=== PATIENT | female | born 1985 | race Hispanic/Latino ===

== ENCOUNTER → 2023-12-18 | Emergency (ER) | payer OTHER ==
[~2023-12-18] MED LIST: DICYCLOMINE HCL 10 MG CAP ONE; FAMOTIDINE 20 MG/2 ML VIAL IV ONE; KETOROLAC 30 MG/ML INJ ONE; NA CHLORIDE 0.9% 1,000 ML ONE; ONDANSETRON 4 MG/2 ML VIAL ONE
--- OUTSIDE RECORDS SUMMARY | 2023-12-18 23:38 | XMS REPORT | Continuity of Care Document ---
Author Name Unknown Address [address] [facility] [address] [place] [address] [facility] thconnect Address [address] [facility] [address] [place] [address] Care Team Providers Care Grinder Name Role Phone Dede Wright Primary Care Physician Allergies, Adverse Reactions, Alerts Allergy Name Allergy Type Status Severity Reaction(s) Onset Date Inactive Date Treating Clinician Comments Source Penicill ins - CLASS Propensi ty to adverse reaction to drug Active 2021-0 9 00:00: 00 Penicill ins Propensi ty to adverse reaction to drug Active 2021-0 01-30 00:00: 00 Medications Ordered Medication Name Filled Medication Name Start Date Stop Date Current Medication? Ordering Clinician Indication Dosage Frequency Signature (SIG) Comments Components Source levothyroxi ne 50 mcg tablet 2021-0 5- 00:00: 00 No 1mcg levothyroxi ne 50 mcg tablet 2021-0 5-02 00:00: 00 No 1mcg Dose Unknown 2021-0 4-26 00:00: 00 No Dose Unknown 2021-0 4-26 00:00: 00 No Dose Unknown 2021-0 4-26 00:00: 00 No Dose Unknown 2021-0 4-26 00:00: 00 No Dose Unknown 2021-0 4-26 00:00: 00 No Dose Unknown 2021-0 4-26 00:00: 00 No Dose Unknown 2021-0 4-26 00:00: 00 No Dose Unknown 2021-0 4-26 00:00: 00 No Dose Unknown 2-0 4-26 00:00: 00 No Dose Unknown 2-0 4-26 00:00: 00 No Dose Unknown 0 4 00:00: 00 No Dose Unknown 0 4 00:00: 00 No Dose Unknown 0 01-30 00:00: 00 No Dose Unknown 0 01-30 00:00: 00 No Dose Unknown 0 01-30 00:00: 00 No Dose Unknown 0 01-30 00:00: 00 No Dose Unknown 0 01-30 00:00: 00 No Dose Unknown 0 01-30 00:00: 00 No Dose Unknown 0 01-30 00:00: 00 No Dose Unknown 0 01-30 00:00: 00 No levothyroxi ne 50 mcg tablet 2020-10 0- 00:00: 00 No 1mcg levothyroxi ne 50 mcg tablet 2020-10 0 00:00: 00 No 1mcg Dose Unknown 0 6 00:00: 00 No Dose Unknown 0 6 00:00: 00 No loratadine 10 mg tablet 0 4 00:00: 00 No 1mg levothyroxi ne 50 mcg tablet 0 02-01 00:00: 00 No 1mcg loratadine 10 mg tablet 0 02-01 00:00: 00 No 1mg levothyroxi ne 50 mcg tablet 0 02-01 00:00: 00 No 1mcg levothyroxi ne 50 mcg tablet 2019-10 1- 00:00: 00 No 1mcg levothyroxi ne 50 mcg tablet 2019-10 1- 00:00: 00 No 1mcg Dose Unknown 1 0-30 00:00: 00 No Dose Unknown 2019-10 0 00:00: 00 No levothyroxi ne 50 mcg tablet 0 5- 00:00: 00 No 1mcg levothyroxi ne 50 mcg tablet 0 5- 00:00: 00 No 1mcg loratadine 10 mg tablet 0 - 00:00: 00 No 1mg loratadine 10 mg tablet 0 - 00:00: 00 No 1mg levothyroxi ne 50 mcg tablet 0 - 00:00: 00 No 1mcg Chlorasepti c Throat [place] 1.4 % aerosol 12-27 00:00: 00 No 12% loratadine 10 mg tablet 12-27 00:00: 00 No 1mg loratadine 10 mg tablet 12-27 00:00: 00 No 1mg levothyroxi ne 50 mcg tablet 12-27 00:00: 00 No 1mcg Chlorasepti c Throat [place] 1.4 % aerosol 12-27 00:00: 00 No 12% levothyroxi ne 50 mcg tablet 2018-10 00:00: 00 No 1mcg levothyroxi ne 50 mcg tablet 2018-10 00:00: 00 No 1mcg loratadine 10 mg tablet 07-01 00:00: 00 No 1mg loratadine 10 mg tablet 07-01 00:00: 00 No 1mg Bromfed DM 2 mg-30 mg-10 mg/5 mL oral syrup 07-01 00:00: 00 No 5mg/5 mL Bromfed DM 2 mg-30 mg-10 mg/5 mL oral syrup 07-01 00:00: 00 No 5mg/5 mL levothyroxi ne 50 mcg tablet 04-22 00:00: 00 No 1mcg levothyroxi ne 50 mcg tablet 04-22 00:00: 00 No 1mcg levothyroxi ne 50 mcg tablet 02-05 00:00: 00 No 1mcg levothyroxi ne 50 mcg tablet 02-05 00:00: 00 No 1mcg levothyroxi ne 50 mcg tablet 02-03 00:00: 00 No 1mcg levothyroxi ne 50 mcg tablet 02-03 00:00: 00 No 1mcg fluticasone propionate 50 mcg/actuati on nasal spray,suspe nsion 12-29 00:00: 00 No 2mcg/ac tuation loratadine 10 mg tablet 12-29 00:00: 00 No 1mg fluticasone propionate 50 mcg/actuati on nasal spray,suspe nsion 12-29 00:00: 00 No 2mcg/ac tuation loratadine 10 mg tablet 0 12-29 00:00: 00 No 1mg levothyroxi ne 50 mcg tablet 0 14 00:00: 00 No 1mcg levothyroxi ne 50 mcg tablet 0 14 00:00: 00 No 1mcg levothyroxi ne 50 mcg tablet 2017-10 00:00: 00 No 1mcg levothyroxi ne 50 mcg tablet 2017-10 00:00: 00 No 1mcg fluticasone 50 mcg/actuati on nasal spray,suspe nsion 06-25 00:00: 00 No 2mcg/ac tuation loratadine 10 mg tablet 06-25 00:00: 00 No 1mg Tessalon Perles 100 mg capsule 06-25 00:00: 00 No 1mg fluticasone 50 mcg/actuati on nasal spray,suspe nsion 06-25 00:00: 00 No 2mcg/ac tuation loratadine 10 mg tablet 06-25 00:00: 00 No 1mg Tessalon Perles 100 mg capsule 06-25 00:00: 00 No 1mg levothyroxi ne 50 mcg tablet 0 05-08 00:00: 00 No 1mcg levothyroxi ne 50 mcg tablet 0 05-08 00:00: 00 No 1mcg levothyroxi ne 50 mcg tablet 0 02-20 00:00: 00 No 1mcg levothyroxi ne 50 mcg tablet 0 02-20 00:00: 00 No 1mcg levothyroxi ne 50 mcg tablet 0 02-18 00:00: 00 No 1mcg levothyroxi ne 50 mcg tablet 0 02-18 00:00: 00 No 1mcg levothyroxi ne 50 mcg tablet 0 01-17 00:00: 00 No 1mcg levothyroxi ne 50 mcg tablet 0 01-17 00:00: 00 No 1mcg levothyroxi ne 50 mcg tablet 0 10-15 00:00: 00 No 1mcg levothyroxi ne 50 mcg tablet 0 10-15 00:00: 00 No 1mcg levothyroxi ne 50 mcg tablet 0 1 00:00: 00 No 1mcg levothyroxi ne 50 mcg tablet 0 1 00:00: 00 No 1mcg levothyroxi ne 50 mcg tablet 2016-10 00:00: 00 No 1mcg levothyroxi ne 50 mcg tablet 2016-10 00:00: 00 No 1mcg levothyroxi ne 50 mcg tablet 06-29 00:00: 00 No 1mcg levothyroxi ne 50 mcg tablet 06-29 00:00: 00 No 1mcg levothyroxi ne 50 mcg tablet 06-06 00:00: 00 No 1mcg levothyroxi ne 50 mcg tablet 06-06 00:00: 00 No 1mcg levothyroxi ne 50 mcg tablet 01-30 00:00: 00 No 1mcg levothyroxi ne 50 mcg tablet 01-30 00:00: 00 No 1mcg levothyroxi ne 50 mcg tablet 01-01 00:00: 00 No 1mcg levothyroxi ne 50 mcg tablet 01-01 00:00: 00 No 1mcg levothyroxi ne 25 mcg tablet 12-28 00:00: 00 No 1mcg levothyroxi ne 25 mcg tablet 12-28 00:00: 00 No 1mcg promethazin e-DM 6.25 mg-15 mg/5 mL syrup 2015-10 00:00: 00 No 5mg/5 mL promethazin e-DM 6.25 mg-15 mg/5 mL syrup 2015-10 00:00: 00 No 5mg/5 mL Vital Signs Vital Name Observation Time Observation Value Comments S ource BP Systolic 2022-08-02 10:53:00 114 mm[Hg] BP Diastolic 2022-08-02 10:53:00 79 mm[Hg] Weight Measured 2022-08-02 10:53:00 165.00 pounds Height Measured 2022-08-02 10:53:00 62.00 inches Body Temperature 2022-08-02 10:53:00 98.20 degrees Heart Rate 2022-08-02 10:53:00 84.00 /min Respiratory Rate 2022-08-02 10:53:00 18.00 /min BP Systolic 2022-01-30 11:36:00 123 mm[Hg] BP Diastolic 2022-01-30 11:36:00 74 mm[Hg] Weight Measured 2022-01-30 11:36:00 162.00 pounds Height Measured 2022-01-30 11:36:00 62.00 inches Body Temperature 2022-01-30 11:36:00 98.30 degrees Heart Rate 2022-01-30 11:36:00 68.00 /min Respiratory Rate 2022-01-30 11:36:00 16.00 /min BP Systolic 2021-12-01 10:52:00 113 mm[Hg] BP Diastolic 2021-12-01 10:52:00 78 mm[Hg] Weight Measured 2021-12-01 10:52:00 163.00 pounds Height Measured 2021-12-01 10:52:00 62.00 inches Body Temperature 2021-12-01 10:52:00 97.80 degrees Heart Rate 2021-12-01 10:52:00 80.00 /min Respiratory Rate 2021-12-01 10:52:00 16.00 /min BP Systolic 2021-10-24 11:05:00 BP Diastolic 2021-10-24 11:05:00 Weight Measured 2021-10-24 11:05:00 158.00 pounds Height Measured 2021-10-24 11:05:00 62.00 inches Body Temperature 2021-10-24 11:05:00 Heart Rate 2021-10-24 11:05:00 Respiratory Rate 2021-10-24 11:05:00 BP Systolic 2021-07-28 11:23:00 115 mm[Hg] BP Diastolic 2021-07-28 11:23:00 76 mm[Hg] Weight Measured 2021-07-28 11:23:00 158.00 pounds Height Measured 2021-07-28 11:23:00 62.00 inches Body Temperature 2021-07-28 11:23:00 98.30 degrees Heart Rate 2021-07-28 11:23:00 84.00 /min Respiratory Rate 2021-07-28 11:23:00 17.00 /min BP Systolic 2021-03-27 11:37:00 109 mm[Hg] BP Diastolic 2021-03-27 11:37:00 74 mm[Hg] Weight Measured 2021-03-27 11:37:00 155.58 pounds Height Measured 2021-03-27 11:37:00 62.00 inches Body Temperature 2021-03-27 11:37:00 98.30 degrees Heart Rate 2021-03-27 11:37:00 81.00 /min Respiratory Rate 2021-03-27 11:37:00 BP Systolic 2021-02-01 11:49:00 105 mm[Hg] BP Diastolic 2021-02-01 11:49:00 70 mm[Hg] Weight Measured 2021-02-01 11:49:00 153.00 pounds Height Measured 2021-02-01 11:49:00 62.00 inches Body Temperature 2021-02-01 11:49:00 98.30 degrees Heart Rate 2021-02-01 11:49:00 81.00 /min Respiratory Rate 2021-02-01 11:49:00 16.00 /min BP Systolic 2020-10-26 11:40:00 103 mm[Hg] BP Diastolic 2020-10-26 11:40:00 66 mm[Hg] Weight Measured 2020-10-26 11:40:00 148.60 pounds Height Measured 2020-10-26 11:40:00 62.00 inches Body Temperature 2020-10-26 11:40:00 98.70 degrees Heart Rate 2020-10-26 11:40:00 82.00 /min Respiratory Rate 2020-10-26 11:40:00 18.00 /min BP Systolic 2020-08-05 09:40:00 114 mm[Hg] BP Diastolic 2020-08-05 09:40:00 77 mm[Hg] Weight Measured 2020-08-05 09:40:00 149.80 pounds Height Measured 2020-08-05 09:40:00 62.00 inches Body Temperature 2020-08-05 09:40:00 98.10 degrees Heart Rate 2020-08-05 09:40:00 73.00 /min Respiratory Rate 2020-08-05 09:40:00 16.00 /min BP Systolic 2019-12-28 15:31:00 120 mm[Hg] BP Diastolic 2019-12-28 15:31:00 77 mm[Hg] Weight Measured 2019-12-28 15:31:00 149.00 pounds Height Measured 2019-12-28 15:31:00 62.00 inches Body Temperature 2019-12-28 15:31:00 98.50 degrees Heart Rate 2019-12-28 15:31:00 79.00 /min Respiratory Rate 2019-12-28 15:31:00 16.00 /min BP Systolic 2019-11-06 14:50:00 108 mm[Hg] BP Diastolic 2019-11-06 14:50:00 64 mm[Hg] Weight Measured 2019-11-06 14:50:00 150.20 pounds Height Measured 2019-11-06 14:50:00 62.00 inches Body Temperature 2019-11-06 14:50:00 98.60 degrees Heart Rate 2019-11-06 14:50:00 75.00 /min Respiratory Rate 2019-11-06 14:50:00 Plan of Care Planned Activity Planned Date Details Comments Source Goal Plan of Care Note [code = 22193-3] Goal Plan of Care Note [code = 69331-0] Goal Plan of Care Note [code = 97056-8] Goal Plan of Care Note [code = 84375-6] Goal Plan of Care Note [code = 18572-5] Goal Plan of Care Note [code = 45539-5] Goal Plan of Care Note [code = 84596-6] Goal Plan of Care Note [code = 67483-7] Goal Plan of Care Note [code = 86445-2] Goal Plan of Care Note [code = 44971-9] Goal Plan of Care Note [code = 49954-0] Goal Plan of Care Note [code = 86341-1] Goal Plan of Care Note [code = 84146-6] Goal Plan of Care Note [code = 05803-7] Goal Plan of Care Note [code = 53514-3] Goal Plan of Care Note [code = 83469-0] Goal Plan of Care Note [code = 93180-1] Goal Plan of Care Note [code = 08040-0] Goal Plan of Care Note [code = 05287-4] Goal Plan of Care Note [code = 83180-5] Goal Plan of Care Note [code = 77696-5] Goal Plan of Care Note [code = 97031-2] Goal Plan of Care Note [code = 80027-8] Goal Plan of Care Note [code = 15768-8] Goal Plan of Care Note [code = 94769-3] Goal Plan of Care Note [code = 03583-4] Goal Plan of Care Note [code = 51062-0] Goal Plan of Care Note [code = 05312-5] Goal Plan of Care Note [code = 90171-5] Goal Plan of Care Note [code = 63789-7] Goal Plan of Care Note [code = 79837-1] Goal Plan of Care Note [code = 23727-9] Goal Plan of Care Note [code = 16366-0] Goal Plan of Care Note [code = 13127-2] Goal Plan of Care Note [code = 39012-9] Goal Plan of Care Note [code = 65996-3] Goal Plan of Care Note [code = 17457-9] Goal Plan of Care Note [code = 51547-6] Goal Plan of Care Note [code = 42921-0] Goal Plan of Care Note [code = 14716-7] Goal Plan of Care Note [code = 48705-3] Goal Plan of Care Note [code = 74301-6] Goal Plan of Care Note [code = 42676-8] Goal Plan of Care Note [code = 27577-3] Goal Plan of Care Note [code = 13123-7] Goal Plan of Care Note [code = 26219-2] Goal Plan of Care Note [code = 50525-7] Goal Plan of Care Note [code = 09034-9] Goal Plan of Care Note [code = 54210-5] Goal Plan of Care Note [code = 97405-7] Goal Plan of Care Note [code = 55652-3] Goal Plan of Care Note [code = 63331-1] Goal Plan of Care Note [code = 00604-1] Goal Plan of Care Note [code = 83915-2] Goal Plan of Care Note [code = 24621-1] Goal Plan of Care Note [code = 17668-4] Goal Plan of Care Note [code = 78753-4] Encounters Start Date/Time End Date/Time Encounter Type Admission Type Attending Clinicians Care Facility Care Department Encounter ID Source 2023-12-16 11:38:19 2023-12-16 11:38:[address] [facility] [id number] 2023-10-18 08:55:35 2023-10-18 08:55:[address] [facility] [id number] Rader 2023-10-12 12:56:52 2023-10-12 12:56:[address] [facility] [id number] [address] Rader 2023-09-04 12:04:54 2023-09-04 12:04:54 Outpatient [facility] [id number] [address] Rader 2023-08-01 11:01:58 2023-08-01 11:01:[address] [facility] [id number] Rader 2023-04-29 10:24:01 2023-04-29 10:24:[address] [facility] [id number] [address] Rader 2023-01-25 10:41:10 2023-01-25 10:41:[address] [facility] [id number] [address] Rader 2023-01-23 13:08:49 2023-01-23 13:08:[address] [facility] [id number] [address] Rader 2022-11-05 08:56:42 2022-11-05 08:56:[address] [facility] [id number] [address] Rader 2022-08-02 10:45:06 2022-08-02 10:45:[address] [facility] [id number] [address] Rader 2022-08-02 00:00:00 2022-08-02 00:00:00 Outpatient Visit [id number] 00:00:00 2022-06-29 00:00:00 Outpatient Visit [id number] Results Test Description Test Time Test Comments Results Result Co mments Source LIPID [id number] 05:34:00* Test Item Value Reference Range Interpretation Comme nts CHOLESTEROL (test code = 2210) 181 MG/DL <200 TRIGLYCERIDES (test code = 2232) 80 MG/DL <150 HDL CHOLESTEROL (test code = 2220) 74 MG/DL >39 CALC LDL CHOL (test code = 2237) 90 MG/DL <100 NOTE: CALCULATED LDL IS BASED ON STEVE-SOLORIO METHOD WHICHINCLUDES ADJUSTABLE TRIGLYCERIDE:VLDL CHOLESTEROL RATIO.THIS FACTOR VARIES BY MEASURED TRIGLYCERIDE AND NON-HDLCHOLESTEROL CONCENTRATIONS WITH INCREASED CALCULATED LDL SEENIN HIGHER TRIGLYCERIDE OR LOWER NON-HDL SPECIMENS. FOR MOREINFORMATION, SEE CLIENT ANNOUNCEMENT AT [email or web address] RATIO LDL/HDL (test code = 2238) 1.22 RATIO <3.22 COMPREHENSIVE METABOLIC [id number] 05:34:00* Test Item Value Reference Range Interpretation Comme nts GLUCOSE (test code = 2217) 95 MG/DL 70-99 BUN (test code = 2208) 7 MG/DL 6-20 CREATININE (test code = 2214) 0.85 MG/DL 0.60-1.30 eGFR (2020 CKD-EPI) (test co de = 27716) 89 ML/MIN/1.73 >60 CALC BUN/CREAT (test code = 2235) 8 RATIO 6-28 SODIUM (test code = 2231) 140 MEQ/L 133-146 POTASSIUM (test code = 2228) 3.8 MEQ/L 3.5-5.4 CHLORIDE (test code = 2215) 105 MEQ/L 95-107 CARBON DIOXIDE (test code = 2206) 22 MEQ/L 19-31 CALCIUM (test code = 2209) 9.8 MG/DL 8.5-10.5 PROTEIN, TOTAL (test code = 2229) 6.7 G/DL 6.1-8.3 ALBUMIN (test code = 2201) 4.7 G/DL 3.5-5.2 CALC GLOBULIN (test code = 2240) 2.0 G/DL 1.9-3.7 CALC A/G RATIO (test code = 2234) 2.4 RATIO 1.0-2.6 BILIRUBIN, TOTAL (test code = 2207) 0.4 MG/DL <=1.2 ALKALINE PHOSPHATASE (test code = 2204) 58 U/L 40-112 AST (test code = 2218) 18 U/L 9-40 ALT (test code = 2219) 8 U/L 5-40 HEMOGLOBIN [id number] 02:48:10* Test Item Value Reference Range Interpretation Comme nts HEMOGLOBIN A1c (test code = 99489) 5.7 % 4.2-5.6 H [employer] GUIDELINES FOR HGB A1C: PREDIABETES/INCREASED RISK . . . . . . . 5.7-6.4% DIAGNOSIS OF DIABETES . . . . . . . . . >=6.5% WITH CONFIRMATION OR APPROPRIATE SYMPTOMS NOTE: ASSAY MAY BE AFFECTED BY HEMOGLOBINOPATHIES (SICKLE CELL ANEMIA, S-C DISEASE, OTHERS) OR ARTIFICIALLY LOWERED BY DECREASED RED CELL SURVIVAL (HEMOLYTIC ANEMIAS, BLOOD LOSS, ETC.). CONSIDER ALTERNATE TESTING OR LABORATORY CONSULTATION. CBC W/AUTO DIFF WITH [id number] 02:27:39* Test Item Value Reference Range Interpretation Comme nts WBC (test code = 1001) 5.0 K/UL 3.5-11.0 RBC (test code = 1002) 4.08 M/UL 3.80-5.40 HEMOGLOBIN (test code = 1003) 11.7 G/DL 11.5-15.5 HEMATOCRIT (test code = 1004) 36.2 % 34.0-45.0 MCV (test code = 1005) 88.7 fL 80.0-99.0 MCH (test code = 1006) 28.7 PG 25.0-33.0 MCHC (test code = 1007) 32.3 G/DL 31.0-36.0 RDW (test code = 1038) 13.0 % 11.5-15.0 NEUTROPHILS (test code = 1008) 55.2 % LYMPHOCYTES (test code = 1010) 32.3 % MONOCYTES (test code = 1011) 10.3 % EOSINOPHILS (test code = 1012) 1.4 % BASOPHILS (test code = 1013) 0.6 % IMMATURE GRANULOCYTES (test code = 1036) 0.2 % NUCLEATED RBCS (test code = 1065) 0.0 /100 WBC'S See_Comment [Automated messa ge] The system which generated this result transmitted reference range: 0.0. The reference range was not used to interpret this result as normal/abnormal. PLATELET COUNT (test code = 1015) 260 K/UL 130-400 ABSOLUTE NEUTROPHILS (test code = 1066) 2.74 K/UL 1.50-7.50 ABSOLUTE LYMPHOCYTES (test code = 1067) 1.60 K/UL 1.00-4.00 ABSOLUTE MONOCYTES (test code = 1068) 0.51 K/UL 0.20-1.00 ABSOLUTE EOSINOPHILS (test code = 1040) 0.07 K/UL 0.00-0.50 ABSOLUTE BASOPHILS (test code = 1069) 0.03 K/UL 0.00-0.20 ABS IMMATURE GRANULOCYTES (test code = 1020) 0.01 K/UL 0.00-0.10 ABS NUCLEATED RBCS (test code = 79720) 0.00 K/UL 0.00-0.11 TSH, THIRD [id number] 05:26:13* Test Item Value Reference Range Interpretation Comme nts TSH, THIRD GENERATION (test code = 2821) 2.140 UIU/ML 0.400-4.100 [facility] has impo rtant pathology staff changes effective 12/05/2022. New pathology staff will provide uninterrupted, excellent patient care and clinical consultation. See URL: [email or web address]. UNLESS OTHERWISE INDICATED, ALL TESTING PERFORMED AT [facility] [address] [place] [address] DISTRICT SUPERINTENDENT: JEFF THOMPSON M.D. CLIA NUMBER [id number] [facility] [place]. [id number] CBC W/AUTO DIFF WITH [id number] 05:02:42* Test Item Value Reference Range Interpretation Comme nts WBC (test code = 1001) 6.1 K/UL 3.5-11.0 RBC (test code = 1002) 4.17 M/UL 3.80-5.40 HEMOGLOBIN (test code = 1003) 11.5 G/DL 11.5-15.5 HEMATOCRIT (test code = 1004) 36.1 % 34.0-45.0 MCV (test code = 1005) 86.6 fL 80.0-99.0 MCH (test code = 1006) 27.6 PG 25.0-33.0 MCHC (test code = 1007) 31.9 G/DL 31.0-36.0 RDW (test code = 1038) 13.8 % 11.5-15.0 NEUTROPHILS (test code = 1008) 58.2 % LYMPHOCYTES (test code = 1010) 31.9 % MONOCYTES (test code = 1011) 7.4 % EOSINOPHILS (test code = 1012) 1.5 % BASOPHILS (test code = 1013) 0.7 % IMMATURE GRANULOCYTES (test code = 1036) 0.3 % NUCLEATED RBCS (test code = 1065) 0.0 /100 WBC'S See_Comment [Automated message] The system which generated this result transmitted reference range: 0.0. The reference range was not used to interpret this result as normal/abnormal. PLATELET COUNT (test code = 1015) 282 K/UL 130-400 ABSOLUTE NEUTROPHILS (test code = 1066) 3.52 K/UL 1.50-7.50 ABSOLUTE LYMPHOCYTES (test code = 1067) 1.93 K/UL 1.00-4.00 ABSOLUTE MONOCYTES (test code = 1068) 0.45 K/UL 0.20-1.00 ABSOLUTE EOSINOPHILS (test code = 1040) 0.09 K/UL 0.00-0.50 ABSOLUTE BASOPHILS (test code = 1069) 0.04 K/UL 0.00-0.20 ABS IMMATURE GRANULOCYTES (test code = 1020) 0.02 K/UL 0.00-0.10 ABS NUCLEATED RBCS (test code = 88395) 0.00 K/UL 0.00-0.11 UNLESS OTHER BERGER INDICATED, ALL TESTING PERFORMED [facility] [address] [place] [address] DISTRICT SUPERINTENDENT: JEANETTE GARCIA M.D. CLIA NUMBER [id number] [place] [id number] TSH, THIRD [id number] 06:03:13* Test Item Value Reference Range Interpretation Comme nts TSH, THIRD GENERATION (test code = 2821) 2.020 UIU/ML 0.400-4.100 UNLESS OTHERWISE INDICATED, ALL TESTING PERFORMED [facility] [address] [place] [address] DISTRICT SUPERINTENDENT: JEANETTE GARCIA M.D. CLIA NUMBER [id number] [place]. [id number] 00:00:00* Test Item Value Reference Range Interpretation Comme nts TSH, THIRD GENERATION (test code = 2821) 2.020 UIU/ML [id number] 00:00:00* Test Item Value Reference Range Interpretation Comme nts TSH, THIRD GENERATION (test code = 2821) 2.020 UIU/ML [id number] 00:00:00* Test Item Value Reference Range Interpretation Comme nts TSH, THIRD GENERATION (test code = 2821) 2.020 UIU/ML [id number] 00:00:00* Test Item Value Reference Range Interpretation Comme nts TSH, THIRD GENERATION (test code = 2821) 2.020 UIU/ML [id number] 00:00:00* Test Item Value Reference Range Interpretation Comme nts TSH, THIRD GENERATION (test code = 2821) 2.020 UIU/ML [id number] 00:00:00* Test Item Value Reference Range Interpretation Comme nts TSH, THIRD GENERATION (test code = 2821) 2.020 UIU/ML PAP TEST, THINPREP, [id number] 16:59:16* Test Item Value Reference Range Interpretation Comme nts SOURCE: (test code = 8001) Cervical SLIDES: (test code = 8011) 1 LMP: (test code = 8021) NOT GIVEN SPECIMEN ADEQUACY: (test code = 79980) (NOTE) Satisfactory for evaluation. Endocervical cells/transformation zone component present. INTERPRETATION: (test code = 75152) NILM/NO EPITH. ABNORMALITY;SEE BELOW --- - NEGATIVE FOR INTRAEPITHELIAL LESION OR MALIGNANCY (NILM) ---- ROPING MACHINE TENDER : (test code = 8101) Flora Baker LOCATION: (test code = 38633) (NOTE) Specimens proces sed and interpreted at [facility], [address] [place] [address], , CLIA: [id number] CPT: (test code = 8140) (NOTE) 44002 UNLESS OTH ERWISE INDICATED, COMPUTER AIDED AND ROPING MACHINE TENDER SCREENING PERFORMED. The Pap test is a screening test with an inherent, but low probability of error. Your patient should be reminded to consult you immediately if she experiences any suspicious signs or symptoms, regardless of her Pap test result. An alternate report format containing images or consolidated prior Pap history is available as applicable. UNLESS OTHERWISE INDICATED, ALL TESTING PERFORMED [facility] [employer], [facility]. [address] [place], [place] [address] DISTRICT SUPERINTENDENT: JEANETTE GARCIA M.D. CLIA NUMBER [id number] [facility] [place]. [id number] PAP TEST, THINPREP, [id number] 00:00:00* Test Item Value Reference Range Interpretation Comme nts SOURCE: (test code = 8001) Cervical SLIDES: (test code = 8011) 1 LMP: (test code = 8021) NOT GIVEN SPECIMEN ADEQUACY: (test code = 64224) (NOTE) INTERPRETATION: (test code = 10792) NILM/NO EPITH. ABNORMALITY;SEE BELOW ROPING MACHINE TENDER: (test code = 8101) Flora Baker LOCATION: (test code = 77177) (NOTE) CPT: (test code = 8140) (NOTE) PAP TEST, THINPREP, [id number] 00:00:00* Test Item Value Reference Range Interpretation Comme nts SOURCE: (test code = 8001) Cervical SLIDES: (test code = 8011) 1 LMP: (test code = 8021) NOT GIVEN SPECIMEN ADEQUACY: (test code = 04100) (NOTE) INTERPRETATION: (test code = 32424) NILM/NO EPITH. ABNORMALITY;SEE BELOW ROPING MACHINE TENDER: (test code = 8101) Flora Baker LOCATION: (test code = 87563) (NOTE) CPT: (test code = 8140) (NOTE) PAP TEST, THINPREP, [id number] 00:00:00* Test Item Value Reference Range Interpretation Comme nts SOURCE: (test code = 8001) Cervical SLIDES: (test code = 8011) 1 LMP: (test code = 8021) NOT GIVEN SPECIMEN ADEQUACY: (test code = 34333) (NOTE) INTERPRETATION: (test code = 70368) NILM/NO EPITH. ABNORMALITY;SEE BELOW ROPING MACHINE TENDER: (test code = 8101) Flora [place] LOCATION: (test code = 79678) (NOTE) CPT: (test code = 8140) (NOTE) PAP TEST, THINPREP, [id number] 00:00:00* Test Item Value Reference Range Interpretation Comme nts SOURCE: (test code = 8001) Cervical SLIDES: (test code = 8011) 1 LMP: (test code = 8021) NOT GIVEN SPECIMEN ADEQUACY: (test code = 94935) (NOTE) INTERPRETATION: (test code = 77499) NILM/NO EPITH. ABNORMALITY;SEE BELOW ROPING MACHINE TENDER: (test code = 8101) Flora [place] LOCATION: (test code = 50201) (NOTE) CPT: (test code = 8140) (NOTE) SARS-CoV-2 (COVID-19), RT-PCR/[id number] 15:19:40* Test Item Value Reference Range Interpretation Comments SARS-CoV-2 INTERPRETATION (test code = 68318) NEGATIVE SEE NOTE SARS-CoV-2 R NA NOT DETECTEDNegative results do not preclude SARS-CoV-2 infection and should notbe used as the sole basis for patient management decisions. Negativeresults must be combined with clinical observations, patient history,and epidemiological information. Optimum specimen types and timingfor peak viral levels during infections caused by SARS-CoV-2 have notbeen determined. Collection of multiple specimens or types ofspecimens may be necessary to detect virus. Improper specimencollection and handling, sequence variability under primers/probes,or organism present below the limit of detection may lead to falsenegative results. Positive and negative predictive values oftesting are highly dependent on prevalence. False negative testresults are more likely when prevalence is high. SOURCE (test code = 98048) NOT SPECIFIED Note: Methodolog y is [employer] Real-Time RT-PCR. The expected result or reference range is NEGATIVE (Not Detected). For more information regarding COVID-19 testing to include clinicalinformation, methodology detail, intended use, FDA authorization andrecommended fact sheets for patients or healthcare providers, see [facility] Announcement: SARS-CoV-2 (COVID-19) by NAAT at URL below (note,fact sheets are provided by method given in report:[email or web address] Alternatively, see downloadable PDF fact sheet at:[email or web address] UNLESS OTHERWISE INDICATED, ALL TESTING PERFORMED [facility] [employer], [facility]. [address] [place] [id number] DISTRICT SUPERINTENDENT: JEANETTE GARCIA M.D. CLIA NUMBER [id number] [facility] [place] [place]. [id number] SARS-CoV-2 (COVID-19) by RT-PCR (HIGH RISK)2021-10-25 00:00:00* Test Item Value Reference Range Interpretation Comme nts SARS-CoV-2 INTERPRETATION (t est code = 39737) NEGATIVE SOURCE (test code = 38936) NOT SPECIFIED SARS-CoV-2 (COVID-19) by RT-PCR (HIGH RISK)2021-10-25 00:00:00* Test Item Value Reference Range Interpretation Comme nts SARS-CoV-2 INTERPRETATION (t est code = 90128) NEGATIVE SOURCE (test code = 59746) NOT SPECIFIED SARS-CoV-2 (COVID-19) by RT-PCR (HIGH RISK)2021-10-25 00:00:00* Test Item Value Reference Range Interpretation Comme nts SARS-CoV-2 INTERPRETATION (t est code = 36685) NEGATIVE SOURCE (test code = 59101) NOT SPECIFIED SARS-CoV-2 (COVID-19) by RT-PCR (HIGH RISK)2021-10-25 00:00:00* Test Item Value Reference Range Interpretation Comme nts SARS-CoV-2 INTERPRETATION (t est code = 25349) NEGATIVE SOURCE (test code = 70575) NOT SPECIFIED [id number] 00:00:00* Test Item Value Reference Range Interpretation Comme nts TSH, THIRD GENERATION (test code = 2821) 2.750 UIU/ML [id number] 00:00:00* Test Item Value Reference Range Interpretation Comme nts TSH, THIRD GENERATION (test code = 2821) 2.750 UIU/ML [id number] 00:00:00* Test Item Value Reference Range Interpretation Comme nts TSH, THIRD GENERATION (test code = 2821) 2.750 UIU/ML [id number] 00:00:00* Test Item Value Reference Range Interpretation Comme nts TSH, THIRD GENERATION (test code = 2821) 2.750 UIU/ML [id number] 00:00:00* Test Item Value Reference Range Interpretation Comme nts TSH, THIRD GENERATION (test code = 2821) 2.750 UIU/ML [id number] 00:00:00* Test Item Value Reference Range Interpretation Comme nts TSH, THIRD GENERATION (test code = 2821) 2.750 UIU/ML [id number] 00:00:00* Test Item Value Reference Range Interpretation Comme nts TSH, THIRD GENERATION (test code = 2821) 3.440 UIU/ML [id number] 00:00:00* Test Item Value Reference Range Interpretation Comme nts TSH, THIRD GENERATION (test code = 2821) 3.440 UIU/ML [id number] 00:00:00* Test Item Value Reference Range Interpretation Comme nts TSH, THIRD GENERATION (test code = 2821) 3.440 UIU/ML [id number] 00:00:00* Test Item Value Reference Range Interpretation Comme nts TSH, THIRD GENERATION (test code = 2821) 3.440 UIU/ML [id number] 00:00:00* Test Item Value Reference Range Interpretation Comme nts TSH, THIRD GENERATION (test code = 2821) 3.440 UIU/ML [id number] 00:00:00* Test Item Value Reference Range Interpretation Comme nts TSH, THIRD GENERATION (test code = 2821) 3.440 UIU/ML [id number] 00:00:00* Test Item Value Reference Range Interpretation Comme nts TSH, THIRD GENERATION (test code = 2821) 3.190 UIU/ML [id number] 00:00:00* Test Item Value Reference Range Interpretation Comme nts TSH, THIRD GENERATION (test code = 2821) 3.190 UIU/ML [id number] 00:00:00* Test Item Value Reference Range Interpretation Comme nts TSH, THIRD GENERATION (test code = 2821) 3.190 UIU/ML [id number] 00:00:00* Test Item Value Reference Range Interpretation Comme nts TSH, THIRD GENERATION (test code = 2821) 3.190 UIU/ML [id number] 00:00:00* Test Item Value Reference Range Interpretation Comme nts TSH, THIRD GENERATION (test code = 2821) 3.190 UIU/ML [id number] 00:00:00* Test Item Value Reference Range Interpretation Comme nts TSH, THIRD GENERATION (test code = 2821) 3.190 UIU/ML CBC W/AUTO DIFF WITH PLATELETS [ADDED]2020-02-13 00:00:00* Test Item Value Reference Range Interpretation Comme nts WBC (test code = 1001) 5.0 K/UL RBC (test code = 1002) 3.83 M/UL HEMOGLOBIN (test code = 1003) 11.2 G/DL HEMATOCRIT (test code = 1004) 33.2 % MCV (test code = 1005) 86.7 fL MCH (test code = 1006) 29.2 PG MCHC (test code = 1007) 33.7 G/DL RDW (test code = 1038) 13.0 % NEUTROPHILS (test code = 1008) 57.5 % LYMPHOCYTES (test code = 1010) 31.0 % MONOCYTES (test code = 1011) 9.1 % EOSINOPHILS (test code = 1012) 1.6 % BASOPHILS (test code = 1013) 0.8 % PLATELET COUNT (test code = 1015) 248 K/UL CBC W/AUTO DIFF WITH PLATELETS [ADDED]2020-02-13 00:00:00* Test Item Value Reference Range Interpretation Comme nts WBC (test code = 1001) 5.0 K/UL RBC (test code = 1002) 3.83 M/UL HEMOGLOBIN (test code = 1003) 11.2 G/DL HEMATOCRIT (test code = 1004) 33.2 % MCV (test code = 1005) 86.7 fL MCH (test code = 1006) 29.2 PG MCHC (test code = 1007) 33.7 G/DL RDW (test code = 1038) 13.0 % NEUTROPHILS (test code = 1008) 57.5 % LYMPHOCYTES (test code = 1010) 31.0 % MONOCYTES (test code = 1011) 9.1 % EOSINOPHILS (test code = 1012) 1.6 % BASOPHILS (test code = 1013) 0.8 % PLATELET COUNT (test code = 1015) 248 K/UL CBC W/AUTO DIFF WITH PLATELETS [ADDED]2020-02-13 00:00:00* Test Item Value Reference Range Interpretation Comme nts WBC (test code = 1001) 5.0 K/UL RBC (test code = 1002) 3.83 M/UL HEMOGLOBIN (test code = 1003) 11.2 G/DL HEMATOCRIT (test code = 1004) 33.2 % MCV (test code = 1005) 86.7 fL MCH (test code = 1006) 29.2 PG MCHC (test code = 1007) 33.7 G/DL RDW (test code = 1038) 13.0 % NEUTROPHILS (test code = 1008) 57.5 % LYMPHOCYTES (test code = 1010) 31.0 % MONOCYTES (test code = 1011) 9.1 % EOSINOPHILS (test code = 1012) 1.6 % BASOPHILS (test code = 1013) 0.8 % PLATELET COUNT (test code = 1015) 248 K/UL TSH, THIRD GENERATION [ADDED]2020-02-13 00:00:00* Test Item Value Reference Range Interpretation Comme nts TSH, THIRD GENERATION (test code = 2821) 3.550 UIU/ML TSH, THIRD GENERATION [ADDED]2020-02-13 00:00:00* Test Item Value Reference Range Interpretation Comme nts TSH, THIRD GENERATION (test code = 2821) 3.550 UIU/ML TSH, THIRD GENERATION [ADDED]2020-02-13 00:00:00* Test Item Value Reference Range Interpretation Comme nts TSH, THIRD GENERATION (test code = 2821) 3.550 UIU/ML CBC W/AUTO DIFF WITH PLATELETS [ADDED]2020-02-13 00:00:00* Test Item Value Reference Range Interpretation Comme nts WBC (test code = 1001) 5.0 K/UL RBC (test code = 1002) 3.83 M/UL HEMOGLOBIN (test code = 1003) 11.2 G/DL HEMATOCRIT (test code = 1004) 33.2 % MCV (test code = 1005) 86.7 fL MCH (test code = 1006) 29.2 PG MCHC (test code = 1007) 33.7 G/DL RDW (test code = 1038) 13.0 % NEUTROPHILS (test code = 1008) 57.5 % LYMPHOCYTES (test code = 1010) 31.0 % MONOCYTES (test code = 1011) 9.1 % EOSINOPHILS (test code = 1012) 1.6 % BASOPHILS (test code = 1013) 0.8 % PLATELET COUNT (test code = 1015) 248 K/UL CBC W/AUTO DIFF WITH PLATELETS [ADDED]2020-02-13 00:00:00* Test Item Value Reference Range Interpretation Comme nts WBC (test code = 1001) 5.0 K/UL RBC (test code = 1002) 3.83 M/UL HEMOGLOBIN (test code = 1003) 11.2 G/DL HEMATOCRIT (test code = 1004) 33.2 % MCV (test code = 1005) 86.7 fL MCH (test code = 1006) 29.2 PG MCHC (test code = 1007) 33.7 G/DL RDW (test code = 1038) 13.0 % NEUTROPHILS (test code = 1008) 57.5 % LYMPHOCYTES (test code = 1010) 31.0 % MONOCYTES (test code = 1011) 9.1 % EOSINOPHILS (test code = 1012) 1.6 % BASOPHILS (test code = 1013) 0.8 % PLATELET COUNT (test code = 1015) 248 K/UL CBC W/AUTO DIFF WITH PLATELETS [ADDED]2020-02-13 00:00:00* Test Item Value Reference Range Interpretation Comme nts WBC (test code = 1001) 5.0 K/UL RBC (test code = 1002) 3.83 M/UL HEMOGLOBIN (test code = 1003) 11.2 G/DL HEMATOCRIT (test code = 1004) 33.2 % MCV (test code = 1005) 86.7 fL MCH (test code = 1006) 29.2 PG MCHC (test code = 1007) 33.7 G/DL RDW (test code = 1038) 13.0 % NEUTROPHILS (test code = 1008) 57.5 % LYMPHOCYTES (test code = 1010) 31.0 % MONOCYTES (test code = 1011) 9.1 % EOSINOPHILS (test code = 1012) 1.6 % BASOPHILS (test code = 1013) 0.8 % PLATELET COUNT (test code = 1015) 248 K/UL TSH, THIRD GENERATION [ADDED]2020-02-13 00:00:00* Test Item Value Reference Range Interpretation Comme nts TSH, THIRD GENERATION (test code = 2821) 3.550 UIU/ML TSH, THIRD GENERATION [ADDED]2020-02-13 00:00:00* Test Item Value Reference Range Interpretation Comme nts TSH, THIRD GENERATION (test code = 2821) 3.550 UIU/ML TSH, THIRD GENERATION [ADDED]2020-02-13 00:00:00* Test Item Value Reference Range Interpretation Comme nts TSH, THIRD GENERATION (test code = 2821) 3.550 UIU/ML [id number] 00:00:00* Test Item Value Reference Range Interpretation Comme nts TSH, THIRD GENERATION (test code = 2821) 4.090 UIU/ML CBC W/AUTO [id number] 00:00:00* Test Item Value Reference Range Interpretation Comme nts WBC (test code = 1001) 6.4 K/UL RBC (test code = 1002) 3.87 M/UL HEMOGLOBIN (test code = 1003) 11.5 G/DL HEMATOCRIT (test code = 1004) 32.8 % MCV (test code = 1005) 84.8 fL MCH (test code = 1006) 29.7 PG MCHC (test code = 1007) 35.1 G/DL RDW (test code = 1038) 13.3 % NEUTROPHILS (test code = 1008) 57.4 % LYMPHOCYTES (test code = 1010) 32.2 % MONOCYTES (test code = 1011) 8.3 % EOSINOPHILS (test code = 1012) 1.3 % BASOPHILS (test code = 1013) 0.8 % PLATELET COUNT (test code = 1015) 241 K/UL CBC W/AUTO [id number] 00:00:00* Test Item Value Reference Range Interpretation Comme nts WBC (test code = 1001) 6.4 K/UL RBC (test code = 1002) 3.87 M/UL HEMOGLOBIN (test code = 1003) 11.5 G/DL HEMATOCRIT (test code = 1004) 32.8 % MCV (test code = 1005) 84.8 fL MCH (test code = 1006) 29.7 PG MCHC (test code = 1007) 35.1 G/DL RDW (test code = 1038) 13.3 % NEUTROPHILS (test code = 1008) 57.4 % LYMPHOCYTES (test code = 1010) 32.2 % MONOCYTES (test code = 1011) 8.3 % EOSINOPHILS (test code = 1012) 1.3 % BASOPHILS (test code = 1013) 0.8 % PLATELET COUNT (test code = 1015) 241 K/UL CBC W/AUTO [id number] 00:00:00* Test Item Value Reference Range Interpretation Comme nts WBC (test code = 1001) 6.4 K/UL RBC (test code = 1002) 3.87 M/UL HEMOGLOBIN (test code = 1003) 11.5 G/DL HEMATOCRIT (test code = 1004) 32.8 % MCV (test code = 1005) 84.8 fL MCH (test code = 1006) 29.7 PG MCHC (test code = 1007) 35.1 G/DL RDW (test code = 1038) 13.3 % NEUTROPHILS (test code = 1008) 57.4 % LYMPHOCYTES (test code = 1010) 32.2 % MONOCYTES (test code = 1011) 8.3 % EOSINOPHILS (test code = 1012) 1.3 % BASOPHILS (test code = 1013) 0.8 % PLATELET COUNT (test code = 1015) 241 K/UL [id number] 00:00:00* Test Item Value Reference Range Interpretation Comme nts TSH, THIRD GENERATION (test code = 2821) 4.090 UIU/ML [id number] 00:00:00* Test Item Value Reference Range Interpretation Comme nts TSH, THIRD GENERATION (test code = 2821) 4.090 UIU/ML [id number] 00:00:00* Test Item Value Reference Range Interpretation Comme nts TSH, THIRD GENERATION (test code = 2821) 4.090 UIU/ML CBC W/AUTO [id number] 00:00:00* Test Item Value Reference Range Interpretation Comme nts WBC (test code = 1001) 6.4 K/UL RBC (test code = 1002) 3.87 M/UL HEMOGLOBIN (test code = 1003) 11.5 G/DL HEMATOCRIT (test code = 1004) 32.8 % MCV (test code = 1005) 84.8 fL MCH (test code = 1006) 29.7 PG MCHC (test code = 1007) 35.1 G/DL RDW (test code = 1038) 13.3 % NEUTROPHILS (test code = 1008) 57.4 % LYMPHOCYTES (test code = 1010) 32.2 % MONOCYTES (test code = 1011) 8.3 % EOSINOPHILS (test code = 1012) 1.3 % BASOPHILS (test code = 1013) 0.8 % PLATELET COUNT (test code = 1015) 241 K/UL CBC W/AUTO [id number] 00:00:00* Test Item Value Reference Range Interpretation Comme nts WBC (test code = 1001) 6.4 K/UL RBC (test code = 1002) 3.87 M/UL HEMOGLOBIN (test code = 1003) 11.5 G/DL HEMATOCRIT (test code = 1004) 32.8 % MCV (test code = 1005) 84.8 fL MCH (test code = 1006) 29.7 PG MCHC (test code = 1007) 35.1 G/DL RDW (test code = 1038) 13.3 % NEUTROPHILS (test code = 1008) 57.4 % LYMPHOCYTES (test code = 1010) 32.2 % MONOCYTES (test code = 1011) 8.3 % EOSINOPHILS (test code = 1012) 1.3 % BASOPHILS (test code = 1013) 0.8 % PLATELET COUNT (test code = 1015) 241 K/UL CBC W/AUTO [id number] 00:00:00* Test Item Value Reference Range Interpretation Comme nts WBC (test code = 1001) 6.4 K/UL RBC (test code = 1002) 3.87 M/UL HEMOGLOBIN (test code = 1003) 11.5 G/DL HEMATOCRIT (test code = 1004) 32.8 % MCV (test code = 1005) 84.8 fL MCH (test code = 1006) 29.7 PG MCHC (test code = 1007) 35.1 G/DL RDW (test code = 1038) 13.3 % NEUTROPHILS (test code = 1008) 57.4 % LYMPHOCYTES (test code = 1010) 32.2 % MONOCYTES (test code = 1011) 8.3 % EOSINOPHILS (test code = 1012) 1.3 % BASOPHILS (test code = 1013) 0.8 % PLATELET COUNT (test code = 1015) 241 K/UL [id number] 00:00:00* Test Item Value Reference Range Interpretation Comme nts TSH, THIRD GENERATION (test code = 2821) 4.090 UIU/ML [id number] 00:00:00* Test Item Value Reference Range Interpretation Comme nts TSH, THIRD GENERATION (test code = 2821) 4.090 UIU/ML [id number] 00:00:00* Test Item Value Reference Range Interpretation Comme nts TSH, THIRD GENERATION (test code = 2821) 6.140 UIU/ML [id number] 00:00:00* Test Item Value Reference Range Interpretation Comme nts TSH, THIRD GENERATION (test code = 2821) 6.140 UIU/ML [id number] 00:00:00* Test Item Value Reference Range Interpretation Comme nts TSH, THIRD GENERATION (test code = 2821) 6.140 UIU/ML CBC W/AUTO [id number] 00:00:00* Test Item Value Reference Range Interpretation Comme nts WBC (test code = 1001) 4.1 K/UL RBC (test code = 1002) 3.91 M/UL HEMOGLOBIN (test code = 1003) 11.2 G/DL HEMATOCRIT (test code = 1004) 33.6 % MCV (test code = 1005) 85.9 fL MCH (test code = 1006) 28.6 PG MCHC (test code = 1007) 33.3 G/DL RDW (test code = 1038) 13.4 % NEUTROPHILS (test code = 1008) 54.6 % LYMPHOCYTES (test code = 1010) 36.5 % MONOCYTES (test code = 1011) 7.2 % EOSINOPHILS (test code = 1012) 1.0 % BASOPHILS (test code = 1013) 0.7 % PLATELET COUNT (test code = 1015) 242 K/UL CBC W/AUTO [id number] 00:00:00* Test Item Value Reference Range Interpretation Comme nts WBC (test code = 1001) 4.1 K/UL RBC (test code = 1002) 3.91 M/UL HEMOGLOBIN (test code = 1003) 11.2 G/DL HEMATOCRIT (test code = 1004) 33.6 % MCV (test code = 1005) 85.9 fL MCH (test code = 1006) 28.6 PG MCHC (test code = 1007) 33.3 G/DL RDW (test code = 1038) 13.4 % NEUTROPHILS (test code = 1008) 54.6 % LYMPHOCYTES (test code = 1010) 36.5 % MONOCYTES (test code = 1011) 7.2 % EOSINOPHILS (test code = 1012) 1.0 % BASOPHILS (test code = 1013) 0.7 % PLATELET COUNT (test code = 1015) 242 K/UL CBC W/AUTO [id number] 00:00:00* Test Item Value Reference Range Interpretation Comme nts WBC (test code = 1001) 4.1 K/UL RBC (test code = 1002) 3.91 M/UL HEMOGLOBIN (test code = 1003) 11.2 G/DL HEMATOCRIT (test code = 1004) 33.6 % MCV (test code = 1005) 85.9 fL MCH (test code = 1006) 28.6 PG MCHC (test code = 1007) 33.3 G/DL RDW (test code = 1038) 13.4 % NEUTROPHILS (test code = 1008) 54.6 % LYMPHOCYTES (test code = 1010) 36.5 % MONOCYTES (test code = 1011) 7.2 % EOSINOPHILS (test code = 1012) 1.0 % BASOPHILS (test code = 1013) 0.7 % PLATELET COUNT (test code = 1015) 242 K/UL [id number] 00:00:00* Test Item Value Reference Range Interpretation Comme nts TSH, THIRD GENERATION (test code = 2821) 6.140 UIU/ML [id number] 00:00:00* Test Item Value Reference Range Interpretation Comme nts TSH, THIRD GENERATION (test code = 2821) 6.140 UIU/ML [id number] 00:00:00* Test Item Value Reference Range Interpretation Comme nts TSH, THIRD GENERATION (test code = 2821) 6.140 UIU/ML CBC W/AUTO [id number] 00:00:00* Test Item Value Reference Range Interpretation Comme nts WBC (test code = 1001) 4.1 K/UL RBC (test code = 1002) 3.91 M/UL HEMOGLOBIN (test code = 1003) 11.2 G/DL HEMATOCRIT (test code = 1004) 33.6 % MCV (test code = 1005) 85.9 fL MCH (test code = 1006) 28.6 PG MCHC (test code = 1007) 33.3 G/DL RDW (test code = 1038) 13.4 % NEUTROPHILS (test code = 1008) 54.6 % LYMPHOCYTES (test code = 1010) 36.5 % MONOCYTES (test code = 1011) 7.2 % EOSINOPHILS (test code = 1012) 1.0 % BASOPHILS (test code = 1013) 0.7 % PLATELET COUNT (test code = 1015) 242 K/UL CBC W/AUTO [id number] 00:00:00* Test Item Value Reference Range Interpretation Comme nts WBC (test code = 1001) 4.1 K/UL RBC (test code = 1002) 3.91 M/UL HEMOGLOBIN (test code = 1003) 11.2 G/DL HEMATOCRIT (test code = 1004) 33.6 % MCV (test code = 1005) 85.9 fL MCH (test code = 1006) 28.6 PG MCHC (test code = 1007) 33.3 G/DL RDW (test code = 1038) 13.4 % NEUTROPHILS (test code = 1008) 54.6 % LYMPHOCYTES (test code = 1010) 36.5 % MONOCYTES (test code = 1011) 7.2 % EOSINOPHILS (test code = 1012) 1.0 % BASOPHILS (test code = 1013) 0.7 % PLATELET COUNT (test code = 1015) 242 K/UL CBC W/AUTO [id number] 00:00:00* Test Item Value Reference Range Interpretation Comme nts WBC (test code = 1001) 4.1 K/UL RBC (test code = 1002) 3.91 M/UL HEMOGLOBIN (test code = 1003) 11.2 G/DL HEMATOCRIT (test code = 1004) 33.6 % MCV (test code = 1005) 85.9 fL MCH (test code = 1006) 28.6 PG MCHC (test code = 1007) 33.3 G/DL RDW (test code = 1038) 13.4 % NEUTROPHILS (test code = 1008) 54.6 % LYMPHOCYTES (test code = 1010) 36.5 % MONOCYTES (test code = 1011) 7.2 % EOSINOPHILS (test code = 1012) 1.0 % BASOPHILS (test code = 1013) 0.7 % PLATELET COUNT (test code = 1015) 242 K/UL [id number] 00:00:00* Test Item Value Reference Range Interpretation Comme nts TSH, THIRD GENERATION (test code = 2821) 3.760 UIU/ML [id number] 00:00:00* Test Item Value Reference Range Interpretation Comme nts TSH, THIRD GENERATION (test code = 2821) 3.760 UIU/ML [id number] 00:00:00* Test Item Value Reference Range Interpretation Comme nts TSH, THIRD GENERATION (test code = 2821) 3.760 UIU/ML [id number] 00:00:00* Test Item Value Reference Range Interpretation Comme nts TSH, THIRD GENERATION (test code = 2821) 3.760 UIU/ML [id number] 00:00:00* Test Item Value Reference Range Interpretation Comme nts TSH, THIRD GENERATION (test code = 2821) 3.760 UIU/ML [id number] 00:00:00* Test Item Value Reference Range Interpretation Comme nts TSH, THIRD GENERATION (test code = 2821) 3.760 UIU/ML LIPID [id number] 00:00:00* Test Item Value Reference Range Interpretation Comme nts CHOLESTEROL (test code = 2210) 180 MG/DL TRIGLYCERIDES (test code = 2232) 76 MG/DL HDL CHOLESTEROL (test code = 2220) 71 MG/DL CALC LDL CHOL (test code = 2237) 94 MG/DL RISK RATIO LDL/HDL (test cod e = 2238) 1.32 RATIO LIPID [id number] 00:00:00* Test Item Value Reference Range Interpretation Comme nts CHOLESTEROL (test code = 2210) 180 MG/DL TRIGLYCERIDES (test code = 2232) 76 MG/DL HDL CHOLESTEROL (test code = 2220) 71 MG/DL CALC LDL CHOL (test code = 2237) 94 MG/DL RISK RATIO LDL/HDL (test cod e = 2238) 1.32 RATIO CBC W/AUTO [id number] 00:00:00* Test Item Value Reference Range Interpretation Comme nts WBC (test code = 1001) 5.7 K/UL RBC (test code = 1002) 4.05 M/UL HEMOGLOBIN (test code = 1003) 11.1 G/DL HEMATOCRIT (test code = 1004) 34.3 % MCV (test code = 1005) 84.7 fL MCH (test code = 1006) 27.4 PG MCHC (test code = 1007) 32.4 G/DL RDW (test code = 1038) 13.3 % NEUTROPHILS (test code = 1008) 55.5 % LYMPHOCYTES (test code = 1010) 33.6 % MONOCYTES (test code = 1011) 8.8 % EOSINOPHILS (test code = 1012) 1.6 % BASOPHILS (test code = 1013) 0.5 % PLATELET COUNT (test code = 1015) 236 K/UL CBC W/AUTO [id number] 00:00:00* Test Item Value Reference Range Interpretation Comme nts WBC (test code = 1001) 5.7 K/UL RBC (test code = 1002) 4.05 M/UL HEMOGLOBIN (test code = 1003) 11.1 G/DL HEMATOCRIT (test code = 1004) 34.3 % MCV (test code = 1005) 84.7 fL MCH (test code = 1006) 27.4 PG MCHC (test code = 1007) 32.4 G/DL RDW (test code = 1038) 13.3 % NEUTROPHILS (test code = 1008) 55.5 % LYMPHOCYTES (test code = 1010) 33.6 % MONOCYTES (test code = 1011) 8.8 % EOSINOPHILS (test code = 1012) 1.6 % BASOPHILS (test code = 1013) 0.5 % PLATELET COUNT (test code = 1015) 236 K/UL CBC W/AUTO [id number] 00:00:00* Test Item Value Reference Range Interpretation Comme nts WBC (test code = 1001) 5.7 K/UL RBC (test code = 1002) 4.05 M/UL HEMOGLOBIN (test code = 1003) 11.1 G/DL HEMATOCRIT (test code = 1004) 34.3 % MCV (test code = 1005) 84.7 fL MCH (test code = 1006) 27.4 PG MCHC (test code = 1007) 32.4 G/DL RDW (test code = 1038) 13.3 % NEUTROPHILS (test code = 1008) 55.5 % LYMPHOCYTES (test code = 1010) 33.6 % MONOCYTES (test code = 1011) 8.8 % EOSINOPHILS (test code = 1012) 1.6 % BASOPHILS (test code = 1013) 0.5 % PLATELET COUNT (test code = 1015) 236 K/UL HEMOGLOBIN [id number] 00:00:00* Test Item Value Reference Range Interpretation Comme nts HEMOGLOBIN A1c (test code = 26122) 5.4 % HEMOGLOBIN [id number] 00:00:00* Test Item Value Reference Range Interpretation Comme nts HEMOGLOBIN A1c (test code = 32277) 5.4 % HEMOGLOBIN [id number] 00:00:00* Test Item Value Reference Range Interpretation Comme nts HEMOGLOBIN A1c (test code = 43173) 5.4 % [id number] 00:00:00* Test Item Value Reference Range Interpretation Comme nts TSH, THIRD GENERATION (test code = 2821) 2.090 UIU/ML [id number] 00:00:00* Test Item Value Reference Range Interpretation Comme nts TSH, THIRD GENERATION (test code = 2821) 2.090 UIU/ML [id number] 00:00:00* Test Item Value Reference Range Interpretation Comme nts TSH, THIRD GENERATION (test code = 2821) 2.090 UIU/ML COMPREHENSIVE METABOLIC [id number] 00:00:00* Test Item Value Reference Range Interpretation Comme nts GLUCOSE (test code = 2217) 98 MG/DL BUN (test code = 2208) 8 MG/DL CREATININE (test code = 2214) 0.63 MG/DL eGFR AMER. (test cod e = 96256) 135 ML/MIN/1.73 eGFR NON- AMER. (test code = 57213) 116 ML/MIN/1.73 CALC BUN/CREAT (test code = 2235) 13 RATIO SODIUM (test code = 2231) 144 MEQ/L POTASSIUM (test code = 2228) 4.1 MEQ/L CHLORIDE (test code = 2215) 106 MEQ/L CARBON DIOXIDE (test code = 2206) 26 MEQ/L CALCIUM (test code = 2209) 9.5 MG/DL PROTEIN, TOTAL (test code = 2229) 6.8 G/DL ALBUMIN (test code = 2201) 4.5 G/DL CALC GLOBULIN (test code = 2240) 2.3 G/DL CALC A/G RATIO (test code = 2234) 2.0 RATIO BILIRUBIN, TOTAL (test code = 2207) <0.2 MG/DL ALKALINE PHOSPHATASE (test code = 2204) 48 U/L AST (test code = 2218) 18 U/L ALT (test code = 2219) 13 U/L COMPREHENSIVE METABOLIC [id number] 00:00:00* Test Item Value Reference Range Interpretation Comme nts GLUCOSE (test code = 2217) 98 MG/DL BUN (test code = 2208) 8 MG/DL CREATININE (test code = 2214) 0.63 MG/DL eGFR AMER. (test cod e = 47629) 135 ML/MIN/1.73 eGFR NON- AMER. (test code = 05894) 116 ML/MIN/1.73 CALC BUN/CREAT (test code = 2235) 13 RATIO SODIUM (test code = 2231) 144 MEQ/L POTASSIUM (test code = 2228) 4.1 MEQ/L CHLORIDE (test code = 2215) 106 MEQ/L CARBON DIOXIDE (test code = 2206) 26 MEQ/L CALCIUM (test code = 2209) 9.5 MG/DL PROTEIN, TOTAL (test code = 2229) 6.8 G/DL ALBUMIN (test code = 2201) 4.5 G/DL CALC GLOBULIN (test code = 2240) 2.3 G/DL CALC A/G RATIO (test code = 2234) 2.0 RATIO BILIRUBIN, TOTAL (test code = 2207) <0.2 MG/DL ALKALINE PHOSPHATASE (test code = 2204) 48 U/L AST (test code = 2218) 18 U/L ALT (test code = 2219) 13 U/L LIPID [id number] 00:00:00* Test Item Value Reference Range Interpretation Comme nts CHOLESTEROL (test code = 2210) 180 MG/DL TRIGLYCERIDES (test code = 2232) 76 MG/DL HDL CHOLESTEROL (test code = 2220) 71 MG/DL CALC LDL CHOL (test code = 2237) 94 MG/DL RISK RATIO LDL/HDL (test cod e = 2238) 1.32 RATIO LIPID [id number] 00:00:00* Test Item Value Reference Range Interpretation Comme nts CHOLESTEROL (test code = 2210) 180 MG/DL TRIGLYCERIDES (test code = 2232) 76 MG/DL HDL CHOLESTEROL (test code = 2220) 71 MG/DL CALC LDL CHOL (test code = 2237) 94 MG/DL RISK RATIO LDL/HDL (test cod e = 2238) 1.32 RATIO CBC W/AUTO [id number] 00:00:00* Test Item Value Reference Range Interpretation Comme nts WBC (test code = 1001) 5.7 K/UL RBC (test code = 1002) 4.05 M/UL HEMOGLOBIN (test code = 1003) 11.1 G/DL HEMATOCRIT (test code = 1004) 34.3 % MCV (test code = 1005) 84.7 fL MCH (test code = 1006) 27.4 PG MCHC (test code = 1007) 32.4 G/DL RDW (test code = 1038) 13.3 % NEUTROPHILS (test code = 1008) 55.5 % LYMPHOCYTES (test code = 1010) 33.6 % MONOCYTES (test code = 1011) 8.8 % EOSINOPHILS (test code = 1012) 1.6 % BASOPHILS (test code = 1013) 0.5 % PLATELET COUNT (test code = 1015) 236 K/UL CBC W/AUTO [id number] 00:00:00* Test Item Value Reference Range Interpretation Comme nts WBC (test code = 1001) 5.7 K/UL RBC (test code = 1002) 4.05 M/UL HEMOGLOBIN (test code = 1003) 11.1 G/DL HEMATOCRIT (test code = 1004) 34.3 % MCV (test code = 1005) 84.7 fL MCH (test code = 1006) 27.4 PG MCHC (test code = 1007) 32.4 G/DL RDW (test code = 1038) 13.3 % NEUTROPHILS (test code = 1008) 55.5 % LYMPHOCYTES (test code = 1010) 33.6 % MONOCYTES (test code = 1011) 8.8 % EOSINOPHILS (test code = 1012) 1.6 % BASOPHILS (test code = 1013) 0.5 % PLATELET COUNT (test code = 1015) 236 K/UL CBC W/AUTO [id number] 00:00:00* Test Item Value Reference Range Interpretation Comme nts WBC (test code = 1001) 5.7 K/UL RBC (test code = 1002) 4.05 M/UL HEMOGLOBIN (test code = 1003) 11.1 G/DL HEMATOCRIT (test code = 1004) 34.3 % MCV (test code = 1005) 84.7 fL MCH (test code = 1006) 27.4 PG MCHC (test code = 1007) 32.4 G/DL RDW (test code = 1038) 13.3 % NEUTROPHILS (test code = 1008) 55.5 % LYMPHOCYTES (test code = 1010) 33.6 % MONOCYTES (test code = 1011) 8.8 % EOSINOPHILS (test code = 1012) 1.6 % BASOPHILS (test code = 1013) 0.5 % PLATELET COUNT (test code = 1015) 236 K/UL HEMOGLOBIN [id number] 00:00:00* Test Item Value Reference Range Interpretation Comme nts HEMOGLOBIN A1c (test code = 22953) 5.4 % HEMOGLOBIN [id number] 00:00:00* Test Item Value Reference Range Interpretation Comme nts HEMOGLOBIN A1c (test code = 89919) 5.4 % HEMOGLOBIN [id number] 00:00:00* Test Item Value Reference Range Interpretation Comme nts HEMOGLOBIN A1c (test code = 53932) 5.4 % [id number] 00:00:00* Test Item Value Reference Range Interpretation Comme nts TSH, THIRD GENERATION (test code = 2821) 2.090 UIU/ML [id number] 00:00:00* Test Item Value Reference Range Interpretation Comme nts TSH, THIRD GENERATION (test code = 2821) 2.090 UIU/ML [id number] 00:00:00* Test Item Value Reference Range Interpretation Comme nts TSH, THIRD GENERATION (test code = 2821) 2.090 UIU/ML COMPREHENSIVE METABOLIC [id number] 00:00:00* Test Item Value Reference Range Interpretation Comme nts GLUCOSE (test code = 2217) 98 MG/DL BUN (test code = 2208) 8 MG/DL CREATININE (test code = 2214) 0.63 MG/DL eGFR AMER. (test cod e = 94386) 135 ML/MIN/1.73 eGFR NON- AMER. (test code = 79633) 116 ML/MIN/1.73 CALC BUN/CREAT (test code = 2235) 13 RATIO SODIUM (test code = 2231) 144 MEQ/L POTASSIUM (test code = 2228) 4.1 MEQ/L CHLORIDE (test code = 2215) 106 MEQ/L CARBON DIOXIDE (test code = 2206) 26 MEQ/L CALCIUM (test code = 2209) 9.5 MG/DL PROTEIN, TOTAL (test code = 2229) 6.8 G/DL ALBUMIN (test code = 2201) 4.5 G/DL CALC GLOBULIN (test code = 2240) 2.3 G/DL CALC A/G RATIO (test code = 2234) 2.0 RATIO BILIRUBIN, TOTAL (test code = 2207) <0.2 MG/DL ALKALINE PHOSPHATASE (test code = 2204) 48 U/L AST (test code = 2218) 18 U/L ALT (test code = 2219) 13 U/L COMPREHENSIVE METABOLIC [id number] 00:00:00* Test Item Value Reference Range Interpretation Comme nts GLUCOSE (test code = 2217) 98 MG/DL BUN (test code = 2208) 8 MG/DL CREATININE (test code = 2214) 0.63 MG/DL eGFR AMER. (test cod e = 72983) 135 ML/MIN/1.73 eGFR NON- AMER. (test code = 56872) 116 ML/MIN/1.73 CALC BUN/CREAT (test code = 2235) 13 RATIO SODIUM (test code = 2231) 144 MEQ/L POTASSIUM (test code = 2228) 4.1 MEQ/L CHLORIDE (test code = 2215) 106 MEQ/L CARBON DIOXIDE (test code = 2206) 26 MEQ/L CALCIUM (test code = 2209) 9.5 MG/DL PROTEIN, TOTAL (test code = 2229) 6.8 G/DL ALBUMIN (test code = 2201) 4.5 G/DL CALC GLOBULIN (test code = 2240) 2.3 G/DL CALC A/G RATIO (test code = 2234) 2.0 RATIO BILIRUBIN, TOTAL (test code = 2207) <0.2 MG/DL ALKALINE PHOSPHATASE (test code = 2204) 48 U/L AST (test code = 2218) 18 U/L ALT (test code = 2219) 13 U/L VITAMIN B 12 AND FOLIC [id number] 00:00:00* Test Item Value Reference Range Interpretation Comme nts VITAMIN B-12 (test code = 2840) 348 PG/ML FOLIC ACID (test code = 2695) 13.0 UG/L VITAMIN B 12 AND FOLIC [id number] 00:00:00* Test Item Value Reference Range Interpretation Comme nts VITAMIN B-12 (test code = 2840) 348 PG/ML FOLIC ACID (test code = 2695) 13.0 UG/L HEMOGLOBIN [id number] 00:00:00* Test Item Value Reference Range Interpretation Comme nts HEMOGLOBIN A1c (test code = 20742) 5.3 % HEMOGLOBIN [id number] 00:00:00* Test Item Value Reference Range Interpretation Comme nts HEMOGLOBIN A1c (test code = 44809) 5.3 % HEMOGLOBIN [id number] 00:00:00* Test Item Value Reference Range Interpretation Comme nts HEMOGLOBIN A1c (test code = 20405) 5.3 % [id number] 00:00:00* Test Item Value Reference Range Interpretation Comme nts TSH, THIRD GENERATION (test code = 2821) 3.650 UIU/ML [id number] 00:00:00* Test Item Value Reference Range Interpretation Comme nts TSH, THIRD GENERATION (test code = 2821) 3.650 UIU/ML [id number] 00:00:00* Test Item Value Reference Range Interpretation Comme nts TSH, THIRD GENERATION (test code = 2821) 3.650 UIU/ML VITAMIN B 12 AND FOLIC [id number] 00:00:00* Test Item Value Reference Range Interpretation Comme nts VITAMIN B-12 (test code = 2840) 348 PG/ML FOLIC ACID (test code = 2695) 13.0 UG/L VITAMIN B 12 AND FOLIC [id number] 00:00:00* Test Item Value Reference Range Interpretation Comme nts VITAMIN B-12 (test code = 2840) 348 PG/ML FOLIC ACID (test code = 2695) 13.0 UG/L HEMOGLOBIN [id number] 00:00:00* Test Item Value Reference Range Interpretation Comme nts HEMOGLOBIN A1c (test code = 55930) 5.3 % HEMOGLOBIN [id number] 00:00:00* Test Item Value Reference Range Interpretation Comme nts HEMOGLOBIN A1c (test code = 02580) 5.3 % HEMOGLOBIN [id number] 00:00:00* Test Item Value Reference Range Interpretation Comme nts HEMOGLOBIN A1c (test code = 18091) 5.3 % [id number] 00:00:00* Test Item Value Reference Range Interpretation Comme nts TSH, THIRD GENERATION (test code = 2821) 3.650 UIU/ML [id number] 00:00:00* Test Item Value Reference Range Interpretation Comme nts TSH, THIRD GENERATION (test code = 2821) 3.650 UIU/ML [id number] 00:00:00* Test Item Value Reference Range Interpretation Comme nts TSH, THIRD GENERATION (test code = 2821) 3.650 UIU/ML [id number] 00:00:00* Test Item Value Reference Range Interpretation Comme nts TSH (test code = 2821) 3.040 UIU/ML [id number] 00:00:00* Test Item Value Reference Range Interpretation Comme nts TSH (test code = 2821) 3.040 UIU/ML [id number] 00:00:00* Test Item Value Reference Range Interpretation Comme nts TSH (test code = 2821) 3.040 UIU/ML [id number] 00:00:00* Test Item Value Reference Range Interpretation Comme nts TSH (test code = 2821) 3.040 UIU/ML [id number] 00:00:00* Test Item Value Reference Range Interpretation Comme nts TSH (test code = 2821) 3.040 UIU/ML [id number] 00:00:00* Test Item Value Reference Range Interpretation Comme nts TSH (test code = 2821) 3.040 UIU/ML [id number] 00:00:00* Test Item Value Reference Range Interpretation Comme nts TSH (test code = 2821) 3.620 UIU/ML [id number] 00:00:00* Test Item Value Reference Range Interpretation Comme nts TSH (test code = 2821) 3.620 UIU/ML [id number] 00:00:00* Test Item Value Reference Range Interpretation Comme nts TSH (test code = 2821) 3.620 UIU/ML COMPREHENSIVE METABOLIC [id number] 00:00:00* Test Item Value Reference Range Interpretation Comme nts GLUCOSE (test code = 2217) 80 MG/DL BUN (test code = 2208) 10 MG/DL CREATININE (test code = 2214) 0.73 MG/DL eGFR AMER. (test cod e = 89449) 125 ML/MIN/1.73 eGFR NON- AMER. (test code = 03498) 107 ML/MIN/1.73 CALC BUN/CREAT (test code = 2235) 14 RATIO SODIUM (test code = 2231) 143 MEQ/L POTASSIUM (test code = 2228) 3.9 MEQ/L CHLORIDE (test code = 2215) 104 MEQ/L CARBON DIOXIDE (test code = 2206) 23 MEQ/L CALCIUM (test code = 2209) 9.4 MG/DL PROTEIN, TOTAL (test code = 2229) 7.1 G/DL ALBUMIN (test code = 2201) 4.7 G/DL CALC GLOBULIN (test code = 2240) 2.4 G/DL CALC A/G RATIO (test code = 2234) 2.0 RATIO BILIRUBIN, TOTAL (test code = 2207) 0.3 MG/DL ALKALINE PHOSPHATASE (test code = 2204) 48 U/L AST (test code = 2218) 18 U/L ALT (test code = 2219) 9 U/L COMPREHENSIVE METABOLIC [id number] 00:00:00* Test Item Value Reference Range Interpretation Comme nts GLUCOSE (test code = 2217) 80 MG/DL BUN (test code = 2208) 10 MG/DL CREATININE (test code = 2214) 0.73 MG/DL eGFR AMER. (test cod e = 76857) 125 ML/MIN/1.73 eGFR NON- AMER. (test code = 01318) 107 ML/MIN/1.73 CALC BUN/CREAT (test code = 2235) 14 RATIO SODIUM (test code = 2231) 143 MEQ/L POTASSIUM (test code = 2228) 3.9 MEQ/L CHLORIDE (test code = 2215) 104 MEQ/L CARBON DIOXIDE (test code = 2206) 23 MEQ/L CALCIUM (test code = 2209) 9.4 MG/DL PROTEIN, TOTAL (test code = 2229) 7.1 G/DL ALBUMIN (test code = 2201) 4.7 G/DL CALC GLOBULIN (test code = 2240) 2.4 G/DL CALC A/G RATIO (test code = 2234) 2.0 RATIO BILIRUBIN, TOTAL (test code = 2207) 0.3 MG/DL ALKALINE PHOSPHATASE (test code = 2204) 48 U/L AST (test code = 2218) 18 U/L ALT (test code = 2219) 9 U/L HEMOGLOBIN [id number] 00:00:00* Test Item Value Reference Range Interpretation Comme nts HEMOGLOBIN A1c (test code = 58512) 5.1 % HEMOGLOBIN [id number] 00:00:00* Test Item Value Reference Range Interpretation Comme nts HEMOGLOBIN A1c (test code = 37806) 5.1 % HEMOGLOBIN [id number] 00:00:00* Test Item Value Reference Range Interpretation Comme nts HEMOGLOBIN A1c (test code = 88787) 5.1 % [id number] 00:00:00* Test Item Value Reference Range Interpretation Comme nts TSH (test code = 2821) 3.620 UIU/ML [id number] 00:00:00* Test Item Value Reference Range Interpretation Comme nts TSH (test code = 2821) 3.620 UIU/ML [id number] 00:00:00* Test Item Value Reference Range Interpretation Comme nts TSH (test code = 2821) 3.620 UIU/ML COMPREHENSIVE METABOLIC [id number] 00:00:00* Test Item Value Reference Range Interpretation Comme nts GLUCOSE (test code = 2217) 80 MG/DL BUN (test code = 2208) 10 MG/DL CREATININE (test code = 2214) 0.73 MG/DL eGFR AMER. (test cod e = 62520) 125 ML/MIN/1.73 eGFR NON- AMER. (test code = 04561) 107 ML/MIN/1.73 CALC BUN/CREAT (test code = 2235) 14 RATIO SODIUM (test code = 2231) 143 MEQ/L POTASSIUM (test code = 2228) 3.9 MEQ/L CHLORIDE (test code = 2215) 104 MEQ/L CARBON DIOXIDE (test code = 2206) 23 MEQ/L CALCIUM (test code = 2209) 9.4 MG/DL PROTEIN, TOTAL (test code = 2229) 7.1 G/DL ALBUMIN (test code = 2201) 4.7 G/DL CALC GLOBULIN (test code = 2240) 2.4 G/DL CALC A/G RATIO (test code = 2234) 2.0 RATIO BILIRUBIN, TOTAL (test code = 2207) 0.3 MG/DL ALKALINE PHOSPHATASE (test code = 2204) 48 U/L AST (test code = 2218) 18 U/L ALT (test code = 2219) 9 U/L COMPREHENSIVE METABOLIC [id number] 00:00:00* Test Item Value Reference Range Interpretation Comme nts GLUCOSE (test code = 2217) 80 MG/DL BUN (test code = 2208) 10 MG/DL CREATININE (test code = 2214) 0.73 MG/DL eGFR AMER. (test cod e = 40753) 125 ML/MIN/1.73 eGFR NON- AMER. (test code = 02934) 107 ML/MIN/1.73 CALC BUN/CREAT (test code = 2235) 14 RATIO SODIUM (test code = 2231) 143 MEQ/L POTASSIUM (test code = 2228) 3.9 MEQ/L CHLORIDE (test code = 2215) 104 MEQ/L CARBON DIOXIDE (test code = 2206) 23 MEQ/L CALCIUM (test code = 2209) 9.4 MG/DL PROTEIN, TOTAL (test code = 2229) 7.1 G/DL ALBUMIN (test code = 2201) 4.7 G/DL CALC GLOBULIN (test code = 2240) 2.4 G/DL CALC A/G RATIO (test code = 2234) 2.0 RATIO BILIRUBIN, TOTAL (test code = 2207) 0.3 MG/DL ALKALINE PHOSPHATASE (test code = 2204) 48 U/L AST (test code = 2218) 18 U/L ALT (test code = 2219) 9 U/L HEMOGLOBIN [id number] 00:00:00* Test Item Value Reference Range Interpretation Comme nts HEMOGLOBIN A1c (test code = 41029) 5.1 % HEMOGLOBIN [id number] 00:00:00* Test Item Value Reference Range Interpretation Comme nts HEMOGLOBIN A1c (test code = 43638) 5.1 % HEMOGLOBIN [id number] 00:00:00* Test Item Value Reference Range Interpretation Comme nts HEMOGLOBIN A1c (test code = 31507) 5.1 % THYROID II PROFILE (T3U, T4, T7, TSH)[id number] 00:00:00* Test Item Value Reference Range Interpretation Comme nts T3 UPTAKE (test code = 2817) 32.1 % T4 (THYROXINE) (test code = 2819) 6.3 UG/DL CALCULATED T7 (FTI) (test co de = 2820) 2.02 TSH (test code = 2821) 3.700 UIU/ML THYROID II PROFILE (T3U, T4, T7, TSH)2017-06-29 00:00:00* Test Item Value Reference Range Interpretation Comme nts T3 UPTAKE (test code = 2817) 32.1 % T4 (THYROXINE) (test code = 2819) 6.3 UG/DL CALCULATED T7 (FTI) (test co de = 2820) 2.02 TSH (test code = 2821) 3.700 UIU/ML THYROID II PROFILE (T3U, T4, T7, TSH)2017-06-29 00:00:00* Test Item Value Reference Range Interpretation Comme nts T3 UPTAKE (test code = 2817) 32.1 % T4 (THYROXINE) (test code = 2819) 6.3 UG/DL CALCULATED T7 (FTI) (test co de = 2820) 2.02 TSH (test code = 2821) 3.700 UIU/ML THYROID II PROFILE (T3U, T4, T7, TSH)2017-06-29 00:00:00* Test Item Value Reference Range Interpretation Comme nts T3 UPTAKE (test code = 2817) 32.1 % T4 (THYROXINE) (test code = 2819) 6.3 UG/DL CALCULATED T7 (FTI) (test co de = 2820) 2.02 TSH (test code = 2821) 3.700 UIU/ML [id number] 00:00:00* Test Item Value Reference Range Interpretation Comme nts TSH (test code = 2821) 3.74 UIU/ML [id number] 00:00:00* Test Item Value Reference Range Interpretation Comme nts TSH (test code = 2821) 3.74 UIU/ML [id number] 00:00:00* Test Item Value Reference Range Interpretation Comme nts TSH (test code = 2821) 3.74 UIU/ML [id number] 00:00:00* Test Item Value Reference Range Interpretation Comme nts TSH (test code = 2821) 3.74 UIU/ML [id number] 00:00:00* Test Item Value Reference Range Interpretation Comme nts TSH (test code = 2821) 3.74 UIU/ML [id number] 00:00:00* Test Item Value Reference Range Interpretation Comme nts TSH (test code = 2821) 3.74 UIU/ML THYROID II PROFILE (T3U, T4, T7, TSH)2016-12-29 00:00:00* Test Item Value Reference Range Interpretation Comme nts T3 UPTAKE (test code = 2817) 27.2 % T4 (THYROXINE) (test code = 2819) 5.6 UG/DL CALCULATED T7 (FTI) (test co de = 2820) 1.52 TSH (test code = 2821) 7.65 UIU/ML THYROID II PROFILE (T3U, T4, T7, TSH)2016-12-29 00:00:00* Test Item Value Reference Range Interpretation Comme nts T3 UPTAKE (test code = 2817) 27.2 % T4 (THYROXINE) (test code = 2819) 5.6 UG/DL CALCULATED T7 (FTI) (test co de = 2820) 1.52 TSH (test code = 2821) 7.65 UIU/ML THYROID II PROFILE (T3U, T4, T7, TSH)2016-12-29 00:00:00* Test Item Value Reference Range Interpretation Comme nts T3 UPTAKE (test code = 2817) 27.2 % T4 (THYROXINE) (test code = 2819) 5.6 UG/DL CALCULATED T7 (FTI) (test co de = 2820) 1.52 TSH (test code = 2821) 7.65 UIU/ML THYROID II PROFILE (T3U, T4, T7, TSH)2016-12-29 00:00:00* Test Item Value Reference Range Interpretation Comme nts T3 UPTAKE (test code = 2817) 27.2 % T4 (THYROXINE) (test code = 2819) 5.6 UG/DL CALCULATED T7 (FTI) (test co de = 2820) 1.52 TSH (test code = 2821) 7.65 UIU/ML HPV HIGH RISK WITH GENOTYPE, [id number] 00:00:00* Test Item Value Reference Range Interpretation Comme nts HPV HIGH RISK INTERP (test c ode = 01477) NEGATIVE HPV 16 (test code = 39145) NEGATIVE HPV 18 (test code = 41519) NEGATIVE HPV, HR, OTHER GENOTYPES (te st code = 67445) NEGATIVE HPV HIGH RISK WITH GENOTYPE, [id number] 00:00:00* Test Item Value Reference Range Interpretation Comme nts HPV HIGH RISK INTERP (test c ode = 65529) NEGATIVE HPV 16 (test code = 71627) NEGATIVE HPV 18 (test code = 89645) NEGATIVE HPV, HR, OTHER GENOTYPES (te st code = 63928) NEGATIVE CHLAMYDIA, AMPLIFIED, [id number] 00:00:00* Test Item Value Reference Range Interpretation Comme nts CHLAMYDIA, TMA (test code = 47118) NEGATIVE CHLAMYDIA, AMPLIFIED, [id number] 00:00:00* Test Item Value Reference Range Interpretation Comme nts CHLAMYDIA, TMA (test code = 71737) NEGATIVE GC, AMPLIFIED, [id number] 00:00:00* Test Item Value Reference Range Interpretation Comme nts GONORRHEA, TMA (test code = 84013) NEGATIVE GC, AMPLIFIED, [id number] 00:00:00* Test Item Value Reference Range Interpretation Comme nts GONORRHEA, TMA (test code = 74178) NEGATIVE PAP TEST, THINPREP, [id number] 00:00:00* Test Item Value Reference Range Interpretation Comme nts SOURCE: (test code = 8001) Cervical/Endocervical SLIDES: (test code = 8011) 1 LMP: (test code = 8021) 12/07/2016 SPECIMEN ADEQUACY: (test code = 08892) (NOTE) INTERPRETATION: (test code = 02977) NO EPITHELIAL ABNORMALITY SEE BELOW ROPING MACHINE TENDER: (test code = 8101) SILVIO HEADLEYZ,CT(ASCP) LOCATION: (test code = 88527) (NOTE) CPT: (test code = 8140) (NOTE) PAP TEST, THINPREP, [id number] 00:00:00* Test Item Value Reference Range Interpretation Comme nts SOURCE: (test code = 8001) Cervical/Endocervical SLIDES: (test code = 8011) 1 LMP: (test code = 8021) 12/07/2016 SPECIMEN ADEQUACY: (test code = 73867) (NOTE) INTERPRETATION: (test code = 33677) NO EPITHELIAL ABNORMALITY SEE BELOW ROPING MACHINE TENDER: (test code = 8101) SILVIO MCKEON,CT(ASCP) LOCATION: (test code = 43256) (NOTE) CPT: (test code = 8140) (NOTE) HPV HIGH RISK WITH GENOTYPE, [id number] 00:00:00* Test Item Value Reference Range Interpretation Comme nts HPV HIGH RISK INTERP (test c ode = 71268) NEGATIVE HPV 16 (test code = 51492) NEGATIVE HPV 18 (test code = 59714) NEGATIVE HPV, HR, OTHER GENOTYPES (te st code = 00847) NEGATIVE HPV HIGH RISK WITH GENOTYPE, [id number] 00:00:00* Test Item Value Reference Range Interpretation Comme nts HPV HIGH RISK INTERP (test c ode = 15058) NEGATIVE HPV 16 (test code = 84624) NEGATIVE HPV 18 (test code = 68781) NEGATIVE HPV, HR, OTHER GENOTYPES (te st code = 25989) NEGATIVE CHLAMYDIA, AMPLIFIED, [id number] 00:00:00* Test Item Value Reference Range Interpretation Comme nts CHLAMYDIA, TMA (test code = 25430) NEGATIVE CHLAMYDIA, AMPLIFIED, [id number] 00:00:00* Test Item Value Reference Range Interpretation Comme nts CHLAMYDIA, TMA (test code = 17806) NEGATIVE GC, AMPLIFIED, [id number] 00:00:00* Test Item Value Reference Range Interpretation Comme nts GONORRHEA, TMA (test code = 33161) NEGATIVE GC, AMPLIFIED, [id number] 00:00:00* Test Item Value Reference Range Interpretation Comme nts GONORRHEA, TMA (test code = 96565) NEGATIVE PAP TEST, THINPREP, [id number] 00:00:00* Test Item Value Reference Range Interpretation Comme nts SOURCE: (test code = 8001) Cervical/Endocervical SLIDES: (test code = 8011) 1 LMP: (test code = 8021) 12/07/2016 SPECIMEN ADEQUACY: (test code = 84209) (NOTE) INTERPRETATION: (test code = 03662) NO EPITHELIAL ABNORMALITY SEE BELOW ROPING MACHINE TENDER: (test code = 8101) GABBI DAILY(ASCP) LOCATION: (test code = 13506) (NOTE) CPT: (test code = 8140) (NOTE) PAP TEST, THINPREP, [id number] 00:00:00* Test Item Value Reference Range Interpretation Comme nts SOURCE: (test code = 8001) Cervical/Endocervical SLIDES: (test code = 8011) 1 LMP: (test code = 8021) 12/07/2016 SPECIMEN ADEQUACY: (test code = 01523) (NOTE) INTERPRETATION: (test code = 15048) NO EPITHELIAL ABNORMALITY SEE BELOW ROPING MACHINE TENDER: (test code = 8101) GABBI DAILY(ASCP) LOCATION: (test code = 58719) (NOTE) CPT: (test code = 8140) (NOTE) LIPID [id number] 00:00:00* Test Item Value Reference Range Interpretation Comme nts CHOLESTEROL (test code = 2210) 181 MG/DL TRIGLYCERIDES (test code = 2232) 82 MG/DL HDL CHOLESTEROL (test code = 2220) 68 MG/DL CALC LDL CHOL (test code = 2237) 97 MG/DL RISK RATIO LDL/HDL (test cod e = 2238) 1.42 RATIO CBC W/AUTO [id number] 00:00:00* Test Item Value Reference Range Interpretation Comme nts WBC (test code = 1001) 5.2 K/UL RBC (test code = 1002) 3.97 M/UL HEMOGLOBIN (test code = 1003) 11.1 G/DL HEMATOCRIT (test code = 1004) 34.8 % MCV (test code = 1005) 87.7 fL MCH (test code = 1006) 28.0 PG MCHC (test code = 1007) 31.9 G/DL RDW (test code = 1038) 13.4 % NEUTROPHILS (test code = 1008) 50.8 % LYMPHOCYTES (test code = 1010) 37.9 % MONOCYTES (test code = 1011) 8.0 % EOSINOPHILS (test code = 1012) 2.7 % BASOPHILS (test code = 1013) 0.6 % PLATELET COUNT (test code = 1015) 245 K/UL CBC W/AUTO [id number] 00:00:00* Test Item Value Reference Range Interpretation Comme nts WBC (test code = 1001) 5.2 K/UL RBC (test code = 1002) 3.97 M/UL HEMOGLOBIN (test code = 1003) 11.1 G/DL HEMATOCRIT (test code = 1004) 34.8 % MCV (test code = 1005) 87.7 fL MCH (test code = 1006) 28.0 PG MCHC (test code = 1007) 31.9 G/DL RDW (test code = 1038) 13.4 % NEUTROPHILS (test code = 1008) 50.8 % LYMPHOCYTES (test code = 1010) 37.9 % MONOCYTES (test code = 1011) 8.0 % EOSINOPHILS (test code = 1012) 2.7 % BASOPHILS (test code = 1013) 0.6 % PLATELET COUNT (test code = 1015) 245 K/UL CBC W/AUTO [id number] 00:00:00* Test Item Value Reference Range Interpretation Comme nts WBC (test code = 1001) 5.2 K/UL RBC (test code = 1002) 3.97 M/UL HEMOGLOBIN (test code = 1003) 11.1 G/DL HEMATOCRIT (test code = 1004) 34.8 % MCV (test code = 1005) 87.7 fL MCH (test code = 1006) 28.0 PG MCHC (test code = 1007) 31.9 G/DL RDW (test code = 1038) 13.4 % NEUTROPHILS (test code = 1008) 50.8 % LYMPHOCYTES (test code = 1010) 37.9 % MONOCYTES (test code = 1011) 8.0 % EOSINOPHILS (test code = 1012) 2.7 % BASOPHILS (test code = 1013) 0.6 % PLATELET COUNT (test code = 1015) 245 K/UL HEMOGLOBIN [id number] 00:00:00* Test Item Value Reference Range Interpretation Comme nts HEMOGLOBIN A1c (test code = 84961) 6.0 % HEMOGLOBIN [id number] 00:00:00* Test Item Value Reference Range Interpretation Comme nts HEMOGLOBIN A1c (test code = 14169) 6.0 % HEMOGLOBIN [id number] 00:00:00* Test Item Value Reference Range Interpretation Comme nts HEMOGLOBIN A1c (test code = 93547) 6.0 % [id number] 00:00:00* Test Item Value Reference Range Interpretation Comme nts TSH (test code = 2821) 5.22 UIU/ML [id number] 00:00:00* Test Item Value Reference Range Interpretation Comme nts TSH (test code = 2821) 5.22 UIU/ML [id number] 00:00:00* Test Item Value Reference Range Interpretation Comme nts TSH (test code = 2821) 5.22 UIU/ML [id number] 00:00:00* Test Item Value Reference Range Interpretation Comme nts RPR RESULT (test code = 3501) NON-REACTIVE RPR TITER (test code = 3500) NOT INDIC. TITER [id number] 00:00:00* Test Item Value Reference Range Interpretation Comme nts RPR RESULT (test code = 3501) NON-REACTIVE RPR TITER (test code = 3500) NOT INDIC. TITER [id number] 00:00:00* Test Item Value Reference Range Interpretation Comme nts RPR RESULT (test code = 3501) NON-REACTIVE RPR TITER (test code = 3500) NOT INDIC. TITER HIV AB/AG COMBO RFLX [id number] 00:00:00* Test Item Value Reference Range Interpretation Comme nts HIV 1/2 4TH GEN, RFLX CONF ( test code = 3514) NON-REACTIVE HIV AB/AG COMBO RFLX [id number] 00:00:00* Test Item Value Reference Range Interpretation Comme nts HIV 1/2 4TH GEN, RFLX CONF ( test code = 3514) NON-REACTIVE ACUTE HEPATITIS [id number] 00:00:00* Test Item Value Reference Range Interpretation Comme nts HEPATITIS A IgM (test code = 20816) NON-REACTIVE HEPATITIS B CORE IgM (test c ode = 4644) NON-REACTIVE HEPATITIS B SURF AG (test co de = 2739) NON-REACTIVE HEPATITIS C ANTIBODY (test c ode = 4675) NON-REACTIVE INTERPRETATION HEPATITIS A: (test code = 2552) (NOTE) INTERPRETATION HEPATITIS B: (test code = 09957) (NOTE) INTERPRETATION HEPATITIS C: (test code = 98155) (NOTE) ACUTE HEPATITIS [id number] 00:00:00* Test Item Value Reference Range Interpretation Comme nts HEPATITIS A IgM (test code = 88018) NON-REACTIVE HEPATITIS B CORE IgM (test c ode = 4644) NON-REACTIVE HEPATITIS B SURF AG (test co de = 2739) NON-REACTIVE HEPATITIS C ANTIBODY (test c ode = 4675) NON-REACTIVE INTERPRETATION HEPATITIS A: (test code = 2552) (NOTE) INTERPRETATION HEPATITIS B: (test code = 33937) (NOTE) INTERPRETATION HEPATITIS C: (test code = 10984) (NOTE) COMPREHENSIVE METABOLIC [id number] 00:00:00* Test Item Value Reference Range Interpretation Comme nts GLUCOSE (test code = 2217) 90 MG/DL BUN (test code = 2208) 12 MG/DL CREATININE (test code = 2214) 0.62 MG/DL eGFR AMER. (test cod e = 11399) 137 ML/MIN/1.73 eGFR NON- AMER. (test code = 56522) 118 ML/MIN/1.73 CALC BUN/CREAT (test code = 2235) 19 RATIO SODIUM (test code = 2231) 142 MEQ/L POTASSIUM (test code = 2228) 4.0 MEQ/L CHLORIDE (test code = 2215) 100 MEQ/L CARBON DIOXIDE (test code = 2206) 20 MEQ/L CALCIUM (test code = 2209) 9.3 MG/DL PROTEIN, TOTAL (test code = 2229) 7.0 G/DL ALBUMIN (test code = 2201) 4.5 G/DL CALC GLOBULIN (test code = 2240) 2.5 G/DL CALC A/G RATIO (test code = 2234) 1.8 RATIO BILIRUBIN, TOTAL (test code = 2207) 0.3 MG/DL ALKALINE PHOSPHATASE (test code = 2204) 49 U/L AST (test code = 2218) 20 U/L ALT (test code = 2219) 10 U/L COMPREHENSIVE METABOLIC [id number] 00:00:00* Test Item Value Reference Range Interpretation Comme nts GLUCOSE (test code = 2217) 90 MG/DL BUN (test code = 2208) 12 MG/DL CREATININE (test code = 2214) 0.62 MG/DL eGFR AMER. (test cod e = 00065) 137 ML/MIN/1.73 eGFR NON- AMER. (test code = 38491) 118 ML/MIN/1.73 CALC BUN/CREAT (test code = 2235) 19 RATIO SODIUM (test code = 2231) 142 MEQ/L POTASSIUM (test code = 2228) 4.0 MEQ/L CHLORIDE (test code = 2215) 100 MEQ/L CARBON DIOXIDE (test code = 2206) 20 MEQ/L CALCIUM (test code = 2209) 9.3 MG/DL PROTEIN, TOTAL (test code = 2229) 7.0 G/DL ALBUMIN (test code = 2201) 4.5 G/DL CALC GLOBULIN (test code = 2240) 2.5 G/DL CALC A/G RATIO (test code = 2234) 1.8 RATIO BILIRUBIN, TOTAL (test code = 2207) 0.3 MG/DL ALKALINE PHOSPHATASE (test code = 2204) 49 U/L AST (test code = 2218) 20 U/L ALT (test code = 2219) 10 U/L LIPID [id number] 00:00:00* Test Item Value Reference Range Interpretation Comme nts CHOLESTEROL (test code = 2210) 181 MG/DL TRIGLYCERIDES (test code = 2232) 82 MG/DL HDL CHOLESTEROL (test code = 2220) 68 MG/DL CALC LDL CHOL (test code = 2237) 97 MG/DL RISK RATIO LDL/HDL (test cod e = 2238) 1.42 RATIO LIPID [id number] 00:00:00* Test Item Value Reference Range Interpretation Comme nts CHOLESTEROL (test code = 2210) 181 MG/DL TRIGLYCERIDES (test code = 2232) 82 MG/DL HDL CHOLESTEROL (test code = 2220) 68 MG/DL CALC LDL CHOL (test code = 2237) 97 MG/DL RISK RATIO LDL/HDL (test cod e = 2238) 1.42 RATIO CBC W/AUTO [id number] 00:00:00* Test Item Value Reference Range Interpretation Comme nts WBC (test code = 1001) 5.2 K/UL RBC (test code = 1002) 3.97 M/UL HEMOGLOBIN (test code = 1003) 11.1 G/DL HEMATOCRIT (test code = 1004) 34.8 % MCV (test code = 1005) 87.7 fL MCH (test code = 1006) 28.0 PG MCHC (test code = 1007) 31.9 G/DL RDW (test code = 1038) 13.4 % NEUTROPHILS (test code = 1008) 50.8 % LYMPHOCYTES (test code = 1010) 37.9 % MONOCYTES (test code = 1011) 8.0 % EOSINOPHILS (test code = 1012) 2.7 % BASOPHILS (test code = 1013) 0.6 % PLATELET COUNT (test code = 1015) 245 K/UL CBC W/AUTO [id number] 00:00:00* Test Item Value Reference Range Interpretation Comme nts WBC (test code = 1001) 5.2 K/UL RBC (test code = 1002) 3.97 M/UL HEMOGLOBIN (test code = 1003) 11.1 G/DL HEMATOCRIT (test code = 1004) 34.8 % MCV (test code = 1005) 87.7 fL MCH (test code = 1006) 28.0 PG MCHC (test code = 1007) 31.9 G/DL RDW (test code = 1038) 13.4 % NEUTROPHILS (test code = 1008) 50.8 % LYMPHOCYTES (test code = 1010) 37.9 % MONOCYTES (test code = 1011) 8.0 % EOSINOPHILS (test code = 1012) 2.7 % BASOPHILS (test code = 1013) 0.6 % PLATELET COUNT (test code = 1015) 245 K/UL CBC W/AUTO [id number] 00:00:00* Test Item Value Reference Range Interpretation Comme nts WBC (test code = 1001) 5.2 K/UL RBC (test code = 1002) 3.97 M/UL HEMOGLOBIN (test code = 1003) 11.1 G/DL HEMATOCRIT (test code = 1004) 34.8 % MCV (test code = 1005) 87.7 fL MCH (test code = 1006) 28.0 PG MCHC (test code = 1007) 31.9 G/DL RDW (test code = 1038) 13.4 % NEUTROPHILS (test code = 1008) 50.8 % LYMPHOCYTES (test code = 1010) 37.9 % MONOCYTES (test code = 1011) 8.0 % EOSINOPHILS (test code = 1012) 2.7 % BASOPHILS (test code = 1013) 0.6 % PLATELET COUNT (test code = 1015) 245 K/UL HEMOGLOBIN [id number] 00:00:00* Test Item Value Reference Range Interpretation Comme nts HEMOGLOBIN A1c (test code = 43847) 6.0 % HEMOGLOBIN [id number] 00:00:00* Test Item Value Reference Range Interpretation Comme nts HEMOGLOBIN A1c (test code = 88644) 6.0 % HEMOGLOBIN [id number] 00:00:00* Test Item Value Reference Range Interpretation Comme nts HEMOGLOBIN A1c (test code = 95819) 6.0 % [id number] 00:00:00* Test Item Value Reference Range Interpretation Comme nts TSH (test code = 2821) 5.22 UIU/ML [id number] 00:00:00* Test Item Value Reference Range Interpretation Comme nts TSH (test code = 2821) 5.22 UIU/ML [id number] 00:00:00* Test Item Value Reference Range Interpretation Comme nts TSH (test code = 2821) 5.22 UIU/ML [id number] 00:00:00* Test Item Value Reference Range Interpretation Comme nts RPR RESULT (test code = 3501) NON-REACTIVE RPR TITER (test code = 3500) NOT INDIC. TITER [id number] 00:00:00* Test Item Value Reference Range Interpretation Comme nts RPR RESULT (test code = 3501) NON-REACTIVE RPR TITER (test code = 3500) NOT INDIC. TITER [id number] 00:00:00* Test Item Value Reference Range Interpretation Comme nts RPR RESULT (test code = 3501) NON-REACTIVE RPR TITER (test code = 3500) NOT INDIC. TITER HIV AB/AG COMBO RFLX [id number] 00:00:00* Test Item Value Reference Range Interpretation Comme nts HIV 1/2 4TH GEN, RFLX CONF ( test code = 3514) NON-REACTIVE HIV AB/AG COMBO RFLX [id number] 00:00:00* Test Item Value Reference Range Interpretation Comme nts HIV 1/2 4TH GEN, RFLX CONF ( test code = 3514) NON-REACTIVE ACUTE HEPATITIS [id number] 00:00:00* Test Item Value Reference Range Interpretation Comme nts HEPATITIS A IgM (test code = 10368) NON-REACTIVE HEPATITIS B CORE IgM (test c ode = 4644) NON-REACTIVE HEPATITIS B SURF AG (test co de = 2739) NON-REACTIVE HEPATITIS C ANTIBODY (test c ode = 4675) NON-REACTIVE INTERPRETATION HEPATITIS A: (test code = 2552) (NOTE) INTERPRETATION HEPATITIS B: (test code = 05929) (NOTE) INTERPRETATION HEPATITIS C: (test code = 80005) (NOTE) ACUTE HEPATITIS [id number] 00:00:00* Test Item Value Reference Range Interpretation Comme nts HEPATITIS A IgM (test code = 34850) NON-REACTIVE HEPATITIS B CORE IgM (test c ode = 4644) NON-REACTIVE HEPATITIS B SURF AG (test co de = 2739) NON-REACTIVE HEPATITIS C ANTIBODY (test c ode = 4675) NON-REACTIVE INTERPRETATION HEPATITIS A: (test code = 2552) (NOTE) INTERPRETATION HEPATITIS B: (test code = 95702) (NOTE) INTERPRETATION HEPATITIS C: (test code = 87827) (NOTE) COMPREHENSIVE METABOLIC [id number] 00:00:00* Test Item Value Reference Range Interpretation Comme nts GLUCOSE (test code = 2217) 90 MG/DL BUN (test code = 2208) 12 MG/DL CREATININE (test code = 2214) 0.62 MG/DL eGFR AMER. (test cod e = 69843) 137 ML/MIN/1.73 eGFR NON- AMER. (test code = 09401) 118 ML/MIN/1.73 CALC BUN/CREAT (test code = 2235) 19 RATIO SODIUM (test code = 2231) 142 MEQ/L POTASSIUM (test code = 2228) 4.0 MEQ/L CHLORIDE (test code = 2215) 100 MEQ/L CARBON DIOXIDE (test code = 2206) 20 MEQ/L CALCIUM (test code = 2209) 9.3 MG/DL PROTEIN, TOTAL (test code = 2229) 7.0 G/DL ALBUMIN (test code = 2201) 4.5 G/DL CALC GLOBULIN (test code = 2240) 2.5 G/DL CALC A/G RATIO (test code = 2234) 1.8 RATIO BILIRUBIN, TOTAL (test code = 2207) 0.3 MG/DL ALKALINE PHOSPHATASE (test code = 2204) 49 U/L AST (test code = 2218) 20 U/L ALT (test code = 2219) 10 U/L COMPREHENSIVE METABOLIC [id number] 00:00:00* Test Item Value Reference Range Interpretation Comme nts GLUCOSE (test code = 2217) 90 MG/DL BUN (test code = 2208) 12 MG/DL CREATININE (test code = 2214) 0.62 MG/DL eGFR AMER. (test cod e = 80754) 137 ML/MIN/1.73 eGFR NON- AMER. (test code = 13732) 118 ML/MIN/1.73 CALC BUN/CREAT (test code = 2235) 19 RATIO SODIUM (test code = 2231) 142 MEQ/L POTASSIUM (test code = 2228) 4.0 MEQ/L CHLORIDE (test code = 2215) 100 MEQ/L CARBON DIOXIDE (test code = 2206) 20 MEQ/L CALCIUM (test code = 2209) 9.3 MG/DL PROTEIN, TOTAL (test code = 2229) 7.0 G/DL ALBUMIN (test code = 2201) 4.5 G/DL CALC GLOBULIN (test code = 2240) 2.5 G/DL CALC A/G RATIO (test code = 2234) 1.8 RATIO BILIRUBIN, TOTAL (test code = 2207) 0.3 MG/DL ALKALINE PHOSPHATASE (test code = 2204) 49 U/L AST (test code = 2218) 20 U/L ALT (test code = 2219) 10 U/L LIPID [id number] 00:00:00* Test Item Value Reference Range Interpretation Comme nts CHOLESTEROL (test code = 2210) 181 MG/DL TRIGLYCERIDES (test code = 2232) 82 MG/DL HDL CHOLESTEROL (test code = 2220) 68 MG/DL CALC LDL CHOL (test code = 2237) 97 MG/DL RISK RATIO LDL/HDL (test cod e = 2238) 1.42 RATIO
[2023-12-19 00:44] LABS: Absolute Eosinophils 0.1 K/uL (0-0.5); Absolute Lymphocytes (CBC) 2.2 K/uL (0.7-4.9); Absolute Monocytes 0.5 K/uL (0.1-1.3); Absolute Neutrophil 3.4 K/uL (1.8-8.0); Basophils % 0.6 % (0-1.3); Eosinophils % 2.1 % (0-4.4); Hematocrit 34.6 % (36.0-45.0); Hemoglobin 11.4 g/dL (12.0-15.0); Lymphocytes % 35.1 % (15.3-44.8); MCH 28.6 pg (27.0-35.0); MCHC 32.8 g/dL (32.0-36.0); MCV 87.3 fL (80-100); MPV 9.1 fL (7.6-11.3); Monocytes % 7.5 % (3.3-12.3); Neutrophils % 54.7 % (41.7-73.7); Nucleated Red Blood Cells % 0.1 % (0-0); Platelets 243 thou/uL (152-406); RBC Red Blood Cell Count 3.96 M/uL (3.86-4.86); Red Cell Distribution Width 14.2 % (12.1-15.2)
[2023-12-19 00:47] LABS: Albumin 3.7 g/dL (3.4-5.0); Albumin/Globulin Ratio 1.1 (1.1-1.8); Anion Gap 9.6 mEq/L (5.0-15.0); Bilirubin Total 0.2 mg/dL (0.2-1.0); Globulin 3.5 g/dL (2.3-3.5); Potassium 3.6 mEq/L (3.5-5.1); Protein, Total 7.2 g/dL (6.4-8.2)
[2023-12-19 01:47] LABS: Specific Gravity < 1.005 (1.005-1.030); Urine Bacteria None Seen /HPF (<20); Urine Bilirubin NEGATIVE (Negative); Urine Blood Negative (Negative); Urine Clarity Turbid (Clear); Urine Color Colorless (Yellow); Urine Glucose NEGATIVE (Negative); Urine Protein NEGATIVE (Negative); Urine RBC None Seen /HPF (None Seen); Urine Urobilinogen Normal (Normal)
[2023-12-19 01:49] LABS: Specific Gravity < 1.005 (1.005-1.030)
--- NOTE | 2023-12-19 03:37 | ER ---
Nurse's Notes [facility] Name: Lisset Lam Age: 38 yrs Sex: Female : 1985 Arrival Date: 12/18/2023 Time: 23:33 Bed 7 Private MD: Diagnosis: Other cholelithiasis without obstruction;Acute epigastric Pain, gastrointestinal reflux, cholelithiasis without cholecystitis Presentation: 12/18 00:03 Chief complaint: Patient states: I started having sever upper abdominal pain. I took an jb4 omeprazole and now I am feeling a little better but still having discomfort. Coronavirus screen: At this time, the client does not indicate any symptoms associated with coronavirus-19. Ebola Screen: No symptoms or risks identified at this time. Initial Sepsis Screen: Does the patient meet any 2 criteria? HR > 90 bpm. Yes Does the patient have a suspected source of infection? No. Patient's initial sepsis screen is negative. Risk Assessment: Do you want to hurt yourself or someone else? Patient reports no desire to harm self or others. Onset of symptoms was December 19, 2023. Transition of care: patient was not received from another setting of care. 00:03 Method Of Arrival: Ambulatory jb4 00:03 Acuity: MAMIE 3 jb4 Triage Assessment: 00:11 General: Appears in no apparent distress. comfortable, Behavior is calm, cooperative, jb4 appropriate for age. Pain: Complains of pain in epigastric area Pain does not radiate. Pain currently is 5 out of 10 on a pain scale. EENT: No signs and/or symptoms were reported regarding the EENT system. Neuro: Level of Consciousness is awake, alert, obeys commands, Oriented to person, place, time, situation. Cardiovascular: Patient's skin is warm and dry. Respiratory: Airway is patent Respiratory effort is even, unlabored, Respiratory pattern is regular, symmetrical. GI: Abdomen is flat, non-distended, Reports upper abdominal pain. : No signs and/or symptoms were reported regarding the genitourinary system. Derm: Skin is intact, Skin is pink, warm \T\ dry. Musculoskeletal: Circulation, motion, and sensation intact. Range of motion: intact in all extremities. Historical: - Allergies: 00:09 PENICILLINS; jb4 - PMHx: 00:09 None; jb4 - PSHx: 00:10 Tubal ligation; jb4 - Immunization history:: Adult Immunizations up to date. - Social history:: Smoking status: Patient denies any tobacco usage or history of. - Family history:: not pertinent. Screenin:23 [facility] ED Fall Risk Assessment (Adult) History of falling in the last 3 months, vc1 including since admission No falls in past 3 months (0 pts) Confusion or Disorientation No (0 pts) Intoxicated or Sedated No (0 pts) Impaired Gait No (0 pts) Mobility Assist Device Used No (0 pt) Altered Elimination No (0 pt) Score/Fall Risk Level 0 - 2 = Low Risk Oriented to surroundings, Maintained a safe environment, Educated pt \T\ family on fall prevention, incl call for assistance when getting out of bed. Abuse screen: Denies threats or abuse. Nutritional screening: No deficits noted. Tuberculosis screening: No symptoms or risk factors identified. Assessment: 00:22 General: Pt states she is unable to provide an urine sample at this time. vc1 00:30 General: Appears in no apparent distress. uncomfortable, Behavior is calm, cooperative, vc1 appropriate for age. Pain: Complains of pain in right upper quadrant and epigastric area Pain does not radiate. Pain Quality of pain is described as sharp, Pain began suddenly, Is continuous. 00:30 Neuro: Level of Consciousness is awake, alert, obeys commands, Oriented to person, vc1 place, time, situation, Appropriate for age. Cardiovascular: Heart tones S1 S2 Capillary refill < 3 seconds Patient's skin is warm and dry. Respiratory: Airway is patent Respiratory effort is even, unlabored, Respiratory pattern is regular, symmetrical. GI: Bowel sounds present X 4 quads. Abd is soft and non tender Reports epigastric pain. : No deficits noted. No signs and/or symptoms were reported regarding the genitourinary system. Urine is clear. EENT: No deficits noted. No signs and/or symptoms were reported regarding the EENT system. Derm: No deficits noted. No signs and/or symptoms reported regarding the dermatologic system. 01:00 Reassessment: No changes from previously documented assessment. Patient and/or family vc1 updated on plan of care and expected duration. Pain level reassessed. Patient is alert, oriented x 3, equal unlabored respirations, skin warm/dry/pink. 02:00 Reassessment: No changes from previously documented assessment. Patient and/or family vc1 updated on plan of care and expected duration. Pain level reassessed. Patient states feeling better. Patient states symptoms have improved. 03:00 Reassessment: Patient appears in no apparent distress at this time. No changes from vc1 previously documented assessment. Patient and/or family updated on plan of care and expected duration. Pain level reassessed. Patient is alert, oriented x 3, equal unlabored respirations, skin warm/dry/pink. 03:44 Reassessment: Patient appears in no apparent distress at this time. No changes from vc1 previously documented assessment. Patient and/or family updated on plan of care and expected duration. Pain level reassessed. Patient is alert, oriented x 3, equal unlabored respirations, skin warm/dry/pink. Vital Signs: 00:03 BP 133 / 82; Pulse 105; Resp 16; Temp 98.3(TE); Pulse Ox 100% on R/A; Weight 73.03 kg jb4 (R); Height 5 ft. 4 in. (R); Pain 5/10; 02:00 BP 120 / 83; Pulse 80; Resp 16; Temp 98.3; Pulse Ox 100% ; Pain 0/10; vc1 03:47 BP 133 / 89; Pulse 80; Resp 16; Pulse Ox 100% ; vc1 00:03 Body Mass Index 27.64 (73.03 kg, 162.56 cm) jb4 00:03 Pain Scale: Adult jb4 02:00 Pain Scale: Adult vc1 ED Course: 12/17 23:34 Patient arrived in ED. jj6 23:37 Rivas Greene PA is PHCP. cp 23:37 Brendan Taveras MD is Attending Physician. cp 12/18 00:09 Triage completed. jb4 00:10 Arm band placed on right wrist. jb4 00:21 Initial lab(s) drawn, by me, sent to lab. Inserted saline lock: 20 gauge in right vc1 antecubital area, using aseptic technique. Blood collected. 00:21 CBC with Diff Sent. vc1 00:21 CMP Sent. vc1 00:21 Lipase Sent. vc1 00:23 Patient has correct armband on for positive identification. Bed in low position. Call vc1 light in reach. Pulse ox on. NIBP on. Door closed. 00:36 XRAY Chest (1 view) In Process Unspecified. EDMS 00:56 US Abdomen Limited In Process Unspecified. EDMS 01:10 Urine collected: clean catch specimen, clear, EKG done, by ED staff. kmf 01:19 Urinalysis w/ reflexes Sent. vc1 01:19 Test, Urine Sent. vc1 01:55 Assisted to bathroom. kmf 02:43 Kalina Gray RN is Primary Nurse. vc1 03:36 Apolinar Garcia MD is Referral Physician. sp4 04:19 Provided Education on: follow up with . vc1 04:19 No provider procedures requiring assistance completed. IV discontinued, intact, vc1 bleeding controlled, No redness/swelling at site. Pressure dressing applied. Administered Medications: 01:16 Drug: NS 0.9% IV 1000 ml IV at 1 bolus Per protocol; 1000 mL bolus Route: IV; Rate: 1 vc1 bolus; Site: right antecubital; 02:16 Follow up: IV Status: Completed infusion; IV Intake: 1000ml vc1 01:16 Drug: Famotidine IVP 20 mg IVP once; dilute with 10 mL 0.9% NaCl; give over 2 minutes vc1 Route: IVP; Site: right antecubital; 03:43 Follow up: Response: No adverse reaction; Marked relief of symptoms vc1 01:16 Drug: Ondansetron IVP 4 mg IVP once; over 2 minutes Route: IVP; Site: right antecubital;vc1 03:42 Follow up: Response: No adverse reaction; Marked relief of symptoms vc1 02:56 Not Given (Patient Refused): TORadol - euouofamc24 mg IVP once vc1 03:42 Drug: Dicyclomine PO 20 mg PO once Route: PO; vc1 04:20 Follow up: Response: No adverse reaction; Marked relief of symptoms vc1 Medication: 00:23 VIS not applicable for this client. vc1 Intake: 02:16 IV: 1000ml; Total: 1000ml. vc1 Outcome: 03:37 Discharge ordered by . sp4 04:19 Discharged to home ambulatory, with family, with significant other, vc1 04:19 Condition: good 04:19 Condition: good 04:19 Discharge instructions given to patient, family, Instructed on discharge instructions, follow up and referral plans. medication usage, Demonstrated understanding of instructions, follow-up care, medications, Prescriptions given X 2, 04:22 Patient left the ED. vc1 Signatures: Dispatcher [employer] EDMS Rivas Greene PA PA cp Bryson, James, RN RN jb4 Lizzette [id number] Kalina Gray RN RN vc1 Brendan Taveras MD MD sp4 Denisse Henderson [facility] Corrections: (The following items were deleted from the chart) 02:46 02:44 General: Appears in no apparent distress. uncomfortable, Behavior is calm, vc1 cooperative, appropriate for age, vc1 02:46 02:44 Pain: Complains of pain in right upper quadrant and epigastric area Pain does not vc1 radiate. Pain vc1
--- NOTE | 2023-12-19 03:37 | EDPHYS ---
Physician Documentation [facility] Name: Lisset Lam Age: 38 yrs Sex: Female : 1985 Arrival Date: 12/18/2023 Time: 23:33 Bed 7 Private MD: ED Physician Brendan Taveras HPI: 12/17 23:50 This 38 yrs old Female presents to ER via Ambulatory with complaints of cp Abdominal Pain. 23:50 The patient presents with abdominal pain in the epigastric area. cp 12/18 03:06 Care was assumed from physician trade sales assistant.. sp4 03:48 Patient apparently has developed epigastric upper abdominal pain at 11 PM today and sp4 took omeprazole at home. She felt this was like an acid pain. Patient has had similar episode 2 weeks ago. Denied vomiting. Denied any pain on physical exam. Patient takes thyroid medication Unithroid 50 mcg daily. . Historical: - Allergies: 00:09 PENICILLINS; jb4 - PMHx: 00:09 None; jb4 - PSHx: 00:10 Tubal ligation; jb4 - Immunization history:: Adult Immunizations up to date. - Social history:: Smoking status: Patient denies any tobacco usage or history of. - Family history:: not pertinent. ROS: 12/17 23:55 Constitutional: Negative for body aches, chills, fever, cp 23:55 Eyes: Negative for injury, pain, redness, and discharge, cp 23:55 Cardiovascular: Positive for chest pain, 23:55 Abdomen/GI: Positive for abdominal pain, nausea, Negative for vomiting, diarrhea, constipation, Exam: 23:59 Constitutional: The patient appears in no acute distress, alert, awake, cp non-diaphoretic, non-toxic, well developed, well nourished, uncomfortable, 23:59 Head/Face: Normocephalic, atraumatic. cp 23:59 Eyes: Periorbital structures: appear normal, Conjunctiva: normal, no exudate, no injection, Sclera: no appreciated abnormality, Lids and lashes: appear normal, bilaterally, 23:59 ENT: External ear(s): are unremarkable, Nose: is normal, Mouth: Lips: moist, Oral mucosa: pink and intact, moist, Posterior pharynx: Airway: no evidence of obstruction, patent, 23:59 Chest/axilla: Inspection: normal, 23:59 Cardiovascular: Rate: tachycardic, Rhythm: regular, 23:59 Respiratory: the patient does not display signs of respiratory distress, Respirations: normal, no use of accessory muscles, no retractions, labored breathing, is not present, Breath sounds: are clear throughout, no decreased breath sounds, no stridor, no wheezing, 23:59 Abdomen/GI: Inspection: abdomen appears normal, Bowel sounds: active, all quadrants, Palpation: soft, in all quadrants, moderate abdominal tenderness, in the epigastric area and right upper quadrant, rebound tenderness, is not appreciated, involuntary guarding, is not appreciated, 23:59 Back: pain, is absent, ROM is normal, 12/18 00:55 ECG was reviewed by the Attending Physician. Vital Signs: 00:03 BP 133 / 82; Pulse 105; Resp 16; Temp 98.3(TE); Pulse Ox 100% on R/A; Weight 73.03 kg jb4 (R); Height 5 ft. 4 in. (R); Pain 5/10; 02:00 BP 120 / 83; Pulse 80; Resp 16; Temp 98.3; Pulse Ox 100% ; Pain 0/10; vc1 03:47 BP 133 / 89; Pulse 80; Resp 16; Pulse Ox 100% ; vc1 00:03 Body Mass Index 27.64 (73.03 kg, 162.56 cm) jb4 00:03 Pain Scale: Adult jb4 02:00 Pain Scale: Adult vc1 MDM: 12/17 23:47 Patient medically screened. cp 12/18 01:56 ED course: CLINICAL HISTORY: epigastric pain COMPARISON: None. TECHNIQUE: XR CHEST 1 sp4 VIEW 12/19/2023 12:07 AM CDT FINDINGS: Cardiac silhouette is normal in size. Lungs are clear without consolidation, atelectasis, mass or edema. There is no pleural effusion. There is no pneumothorax. There are no acute osseous findings. IMPRESSION: Clear lungs.. 03:05 ED course: CLINICAL HISTORY: EPIGASTRIC PAIN COMPARISON: None. TECHNIQUE: US ABDOMEN sp4 LIMITED 12/19/2023 12:07 AM CDT FINDINGS: Gallbladder is contracted containing several small gallstones. Common bile duct measures 3 mm. IMPRESSION: Cholelithiasis. Electronically signed by: Pk Whitman MD 12/19/2023 01:59 AM . 03:06 Differential Diagnosis altered mental status, sepsis, flu. Data reviewed: vital signs, sp4 nurses notes, lab test result(s), radiologic studies, plain films, ultrasound. Consideration of Admission/Observation Escalation of care including admission/observation considered. 03:48 ED course: Patient is stable for discharge home at this time with referral to general sp4 surgeon for evaluation for cholecystectomy.. 12/18 00:07 Order name: CBC with Diff; Complete Time: 00:47 cp 12/18 00:47 Interpretation: Normal except: HGB 11.4; HCT 34.6. cp 12/18 00:07 Order name: CMP; Complete Time: 00:48 cp 12/18 00:48 Interpretation: Normal except: CL 108. cp 12/18 00:07 Order name: Lipase; Complete Time: 01:11 cp 12/18 00:07 Order name: Test, Urine; Complete Time: 03:06 cp 12/18 00:07 Order name: Urinalysis w/ reflexes; Complete Time: 03:06 cp 12/18 00:07 Order name: Troponin High Sensitivity; Complete Time: 01:11 cp 12/18 00:07 Order name: US Abdomen Limited cp 12/18 00:07 Order name: XRAY Chest (1 view) cp 12/18 00:07 Order name: EKG; Complete Time: 00:08 cp 12/18 00:07 Order name: IV Saline Lock; Complete Time: 00:21 cp 12/18 00:07 Order name: Labs collected and sent; Complete Time: 00:21 cp 12/18 00:07 Order name: EKG - Nurse/Tech; Complete Time: 01:08 cp EC:55 Rate is 95 beats/min. Rhythm is regular. CA interval is prolonged at 204 msec. QRS cp interval is normal. QT interval is normal. T waves are Inverted in lead aVR. Interpreted by me. Reviewed by me. Administered Medications: 01:16 Drug: NS 0.9% IV 1000 ml IV at 1 bolus Per protocol; 1000 mL bolus Route: IV; Rate: 1 vc1 bolus; Site: right antecubital; 02:16 Follow up: IV Status: Completed infusion; IV Intake: 1000ml vc1 01:16 Drug: Famotidine IVP 20 mg IVP once; dilute with 10 mL 0.9% NaCl; give over 2 minutes vc1 Route: IVP; Site: right antecubital; 03:43 Follow up: Response: No adverse reaction; Marked relief of symptoms vc1 01:16 Drug: Ondansetron IVP 4 mg IVP once; over 2 minutes Route: IVP; Site: right antecubital;vc1 03:42 Follow up: Response: No adverse reaction; Marked relief of symptoms vc1 02:56 Not Given (Patient Refused): TORadol - [id number] mg IVP once vc1 03:42 Drug: Dicyclomine PO 20 mg PO once Route: PO; vc1 04:20 Follow up: Response: No adverse reaction; Marked relief of symptoms vc1 Disposition: 01:56 Co-signature as Attending Physician, Brendan Taveras MD I agree with the assessment sp4 and plan of care. I reviewed the patient's care provided by Advanced Practice Provider \T\ agree w/ the diagnosis \T\ care plan. I personally saw the pt \T\ performed a substantive portion of the visit, incldng all aspects of the (History/Exam/Medical Decision Making). Disposition Summary: 12/19/23 03:37 Discharge Ordered Problem: new sp4 Symptoms: have improved sp4 Condition: Stable sp4 Diagnosis - Other cholelithiasis without obstruction sp4 - Acute epigastric Pain, gastrointestinal reflux, cholelithiasis without cholecystitissp4 Followup: sp4 - With: Apolinar Garcia MD - When: 7 - 10 days - Reason: Recheck today's complaints Discharge Instructions: - Discharge Summary Sheet sp4 - Cholelithiasis sp4 Forms: - Family Work Release vc1 Prescriptions: - Reglan 10 mg Oral tablet - take 1 tablet ORAL route every 6 hours PRN nausea; 30 tablet; Refills: 0, sp4 Product Selection Permitted - dicyclomine 20 mg Oral tablet - take 1 tablet ORAL route 3 times per day; 30 tablet; Refills: 0, Product sp4 Selection Permitted Signatures: Dispatcher [employer] EDRivas Mendoza PA PA cp Bryson, James, RN RN jb4 Kalina Gray RN RN vc1 Brendan Taveras MD MD sp4
[2023-12-19 04:35] VITALS: BP 133/89; TEMP 98.3; O2SAT 100
--- NOTE | 2023-12-19 14:03 | RAD REPORT ---
EXAM DESCRIPTION: US - Abdomen Exam Limited - 12/19/2023 12:54 am CLINICAL HISTORY: EPIGASTRIC PAIN COMPARISON: None. TECHNIQUE: US ABDOMEN LIMITED 12/19/2023 12:07 AM CDT FINDINGS: Gallbladder is contracted containing several small gallstones. Common bile duct measures 3 mm. IMPRESSION: Cholelithiasis. Electronically signed by: Pk Whitman MD 12/19/2023 01:59 AM CDT Due to temporary technical issues with the PACS/Fluency reporting system, reports are being signed by the in house radiologist without review as a courtesy to ensure prompt reporting. The interpreting r adiologist is fully responsible for the content of the report.
--- NOTE | 2023-12-19 14:04 | RAD REPORT ---
EXAM DESCRIPTION: RAD - Chest Single View - 12/19/2023 12:33 am CLINICAL HISTORY: Epigastric pain COMPARISON: None. TECHNIQUE: XR CHEST 1 VIEW 12/19/2023 12:07 AM CDT FINDINGS: Cardiac silhouette is normal in size. Lungs are clear without consolidation, atelectasis, mass or edema. There is no pleural effusion. There is no pneumothorax. There are no acute osseous fin dings. IMPRESSION: Clear lungs. Electronically signed by: Pk Whitman MD 12/19/2023 01:19 AM CDT Due to temporary technical issues with the PACS/Fluency reporting system, reports are being signed by the in house radiologist without review as a courtesy to ensure prompt reporting. The interpreting r adiologist is fully responsible for the content of the report.
== END ==
LOC: ER 23:33
DX: K80.80 Other cholelithiasis without obstruction (principal); K21.9 Gastro-esophageal reflux disease without esophagitis; F17.210 Nicotine dependence, cigarettes, uncomplicated; Z88.0 Allergy status to penicillin
CPT/HCPCS: 71045; 76705; 93005

== ENCOUNTER → 2023-12-22 | Emergency (ER) | payer OTHER ==
[~2023-12-22] MED LIST changes: -DICYCLOMINE HCL 10 MG CAP ONE; -FAMOTIDINE 20 MG/2 ML VIAL IV ONE; -KETOROLAC 30 MG/ML INJ ONE; -NA CHLORIDE 0.9% 1,000 ML ONE; -ONDANSETRON 4 MG/2 ML VIAL ONE; +POTASSIUM 25 MEQ EFFERV TAB ONE; +POTASSIUM CL SA 10 MEQ TAB PO ONE
--- OUTSIDE RECORDS SUMMARY | 2023-12-22 20:08 | XMS REPORT | Continuity of Care Document ---
Author Name Unknown Address [address] [facility] [address] [place] [address] [facility] Address [address] [facility] 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 Role Phone Dede Wright Primary [facility] [...] Source levothyroxi ne 50 mcg tablet 2021-0 5 00:00: 00 No 1mcg levothyroxi ne 50 mcg tablet 2021-0 5 00:00: 00 No 1mcg Dose Unknown 2021-0 4-26 00:00: 00 No Dose Unknown 2021-0 4-26 00:00: 00 No Dose Unknown 2021-0 -26 00:00: 00 No Dose Unknown 2021-0 4-26 00:00: 00 No Dose Unknown 2021-0 4-26 00:00: 00 No Dose Unknown 2021-0 4-26 00:00: 00 No Dose Unknown 2021-0 4-26 00:00: 00 No Dose Unknown 2021-0 4-26 00:00: 00 No Dose Unknown 2021-0 4-26 00:00: 00 No Dose Unknown 2021-0 4-26 00:00: 00 No Dose Unknown 0 01-30 00:00: 00 No Dose Unknown 0 4 [...] No levothyroxi ne 50 mcg tablet 2020-10 0 00:00: 00 No 1mcg levothyroxi ne 50 mcg tablet 2020-10 0 00:00: 00 No 1mcg Dose Unknown 0 6 00:00: 00 No Dose Unknown 0 03-27 00:00: 00 No loratadine 10 mg tablet 0 02-01 00:00: [...] 1- 00:00: 00 No 1mcg Dose Unknown 2019-10 0-30 00:00: 00 No Dose Unknown 2019-10 [...] 00:00: 00 No 1mcg Chlorasepti c [place] 1.4 % aerosol 12-27 00:00: 00 No 12% loratadine 10 mg tablet 12-27 00:00: 00 No 1mg loratadine 10 mg tablet 12-27 00:00: 00 No 1mg levothyroxi ne 50 mcg tablet 12-27 00:00: 00 No 1mcg Chlorasepti c [place] 1.4 % aerosol 12-27 00:00: 00 No [...] 1mg levothyroxi ne 50 mcg tablet 0 10-20 00:00: 00 No 1mcg levothyroxi ne 50 mcg tablet 0 10-20 00:00: 00 No 1mcg levothyroxi ne 50 mcg tablet 2017-10 00:00: 00 No 1mcg levothyroxi ne 50 mcg tablet 2017-10 00:00: 00 No 1mcg fluticasone 50 mcg/actuati on nasal spray,suspe nsion 06-25 00:00: 00 No 2mcg/ac tuation loratadine 10 mg tablet 06-25 00:00: 00 No 1mg Tessalon [place] 100 mg capsule 0 06-25 00:00: 00 No 1mg fluticasone 50 mcg/actuati on nasal spray,suspe nsion 06-25 00:00: 00 No 2mcg/ac tuation loratadine 10 mg tablet 06-25 00:00: 00 No 1mg Tessalon [place] 100 mg capsule 0 06-25 00:00: 00 No 1mg levothyroxi ne [...] No 1mcg levothyroxi ne 50 mcg tablet 1 00:00: 00 No 1mcg levothyroxi ne [...] Goal Plan of Care Note [code = 13677-9] Goal Plan of Care Note [code = 55404-9] Goal Plan of Care Note [code = 75675-5] Goal Plan of Care Note [code = 00104-5] Goal Plan of Care Note [code = 52916-3] Goal Plan of Care Note [code = 10962-5] Goal Plan of Care Note [code = 20248-1] Goal Plan of Care Note [code = 81404-5] Goal Plan of Care Note [code = 59504-7] Goal Plan of Care Note [code = 83740-9] Goal Plan of Care Note [code = 99680-9] Goal Plan of Care Note [code = 65095-3] Goal Plan of Care Note [code = 43413-3] Goal Plan of Care Note [code = 27472-8] Goal Plan of Care Note [code = 70694-0] Goal Plan of Care Note [code = 66655-5] Goal Plan of Care Note [code = 46203-1] Goal Plan of Care Note [code = 39105-6] Goal Plan of Care Note [code = 24204-3] Goal Plan of Care Note [code = 42384-4] Goal Plan of Care Note [code = 76909-5] Goal Plan of Care Note [code = 01240-6] Goal Plan of Care Note [code = 44004-2] Goal Plan of Care Note [code = 14156-9] Goal Plan of Care Note [code = 75285-3] Goal Plan of Care Note [code = 77433-1] Goal Plan of Care Note [code = 62926-9] Goal Plan of Care Note [code = 94159-5] Goal Plan of Care Note [code = 23065-5] Goal Plan of Care Note [code = 43919-4] Goal Plan of Care Note [code = 39165-7] Goal Plan of Care Note [code = 10630-1] Goal Plan of Care Note [code = 08151-6] Goal Plan of Care Note [code = 33062-3] Goal Plan of Care Note [code = 07283-7] Goal Plan of Care Note [code = 93398-1] Goal Plan of Care Note [code = 36619-7] Goal Plan of Care Note [code = 67937-9] Goal Plan of Care Note [code = 22186-6] Goal Plan of Care Note [code = 19530-4] Goal Plan of Care Note [code = 62824-4] Goal Plan of Care Note [code = 45152-3] Goal Plan of Care Note [code = 71142-6] Goal Plan of Care Note [code = 02870-1] Goal Plan of Care Note [code = 33732-8] Goal Plan of Care Note [code = 92715-3] Goal Plan of Care Note [code = 08381-1] Goal Plan of Care Note [code = 52070-3] Goal Plan of Care Note [code = 55127-8] Goal Plan of Care Note [code = 73507-2] Goal Plan of Care Note [code = 57017-2] Goal Plan of Care Note [code = 81790-0] Goal Plan of Care Note [code = 12777-7] Goal Plan of Care Note [code = 63638-8] Goal Plan of Care Note [code = 51315-4] Goal Plan of Care Note [code = 87397-4] Goal Plan of Care Note [code = 39000-9] Encounters Start Date/Time End Date/Time Encounter Type Admission Type Attending Clinicians Care Facility Care Department Encounter ID Source 2023-12-16 11:38:19 2023-12-16 11:38:19 Outpatient [facility] 0311 Theodore Rader 2023-10-18 08:55:35 2023-10-18 08:55:35 Outpatient SFA SFA [id number] Theodore Rader 2023-10-12 12:56:52 2023-10-12 12:56:52 Outpatient SFA JORGE LUIS 010 Theodore Rader 2023-09-04 12:04:54 2023-09-04 12:04:54 Outpatient SFA SFA [id number] Theodore Rader 2023-08-01 11:01:58 2023-08-01 11:01:58 Outpatient SFA SFA 1026 Theodore Rader 2023-04-29 10:24:01 2023-04-29 10:24:01 Outpatient SFA JORGE LUIS 0724 Theodore Rader 2023-01-25 10:41:10 2023-01-25 10:41:10 Outpatient SFA SFA 0421 Theodore Rader 2023-01-23 13:08:49 2023-01-23 13:08:49 Outpatient SFA SFA 0419 Theodore Rader 2022-11-05 08:56:42 2022-11-05 08:56:42 Outpatient SFA SFA 0130 Theodore Rader 2022-08-02 10:45:06 2022-08-02 10:45:[address] [facility] [id number] Theodore Rader 2022-08-02 00:00:00 2022-08-02 00:00:00 Outpatient Visit [id number] 00:00:00 2022-06-29 00:00:00 Outpatient Visit [id number] Results Test Description Test Time Test Comments Results Result Co mments Source LIPID [id number] 05:34:00* Test Item Value Reference Range Interpretation [...] SPECIMENS. FOR MOREINFORMATION, SEE CLIENT ANNOUNCEMENT AT [email or web address] RISK RATIO LDL/HDL (test code = 2238) 1.22 RATIO <3.22 COMPREHENSIVE METABOLIC [id number] 05:34:00* Test Item Value Reference Range Interpretation Comme nts GLUCOSE (test code = 2217) 95 MG/DL 70-99 BUN (test code = 2208) 7 MG/DL 6-20 CREATININE (test code = 2214) 0.85 MG/DL 0.60-1.30 eGFR (2020 CKD-EPI) (test co de = 95106) 89 ML/MIN/1.73 >60 CALC BUN/CREAT (test code [...] code = 2219) 8 U/L 5-40 HEMOGLOBIN [id number] 02:48:10* Test Item Value Reference Range Interpretation Comme nts HEMOGLOBIN A1c (test code = 64136) 5.7 % 4.2-5.6 H [employer] GUIDELINES FOR HGB A1C: [...] OR LABORATORY CONSULTATION. CBC W/AUTO DIFF WITH [id number] 02:27:39* Test Item Value Reference Range Interpretation [...] = 1065) 0.0 /100 WBC'S See_Comment [Automated [employer] ge] The system which generated this result [...] 0.00-0.10 ABS NUCLEATED RBCS (test code = 36370) 0.00 K/UL 0.00-0.11 TSH, THIRD [id number] 05:26:13* Test Item Value Reference Range Interpretation Comme nts TSH, THIRD GENERATION (test code = 2821) 2.140 UIU/ML 0.400-4.100 [facility] has impo rtant pathology staff changes effective 12/05/2022. New pathology staff will provide uninterrupted, excellent patient care and clinical consultation. See URL: [email or web address]. UNLESS OTHERWISE INDICATED, ALL TESTING PERFORMED AT [facility] [address] [place] [address] EDGING MACHINE OPERATOR: JEFF THOMPSON M.D. CLIA NUMBER [id number] [facility] [place]. [id number] CBC W/AUTO DIFF WITH [id number] 05:02:42* Test Item Value Reference Range Interpretation [...] 0.00-0.10 ABS NUCLEATED RBCS (test code = 86725) 0.00 K/UL 0.00-0.11 UNLESS OTHER BERGER INDICATED, ALL TESTING PERFORMED [facility] [address] [place] [address] EDGING MACHINE OPERATOR: JEANETTE GARCIA M.D. CLIA NUMBER [id number] [place]. [id number] TSH, THIRD [id number] 06:03:13* Test Item Value Reference Range Interpretation Comme nts TSH, THIRD GENERATION (test code = 2821) 2.020 UIU/ML 0.400-4.100 UNLESS OTHERWISE INDICATED, ALL TESTING PERFORMED [facility] [address] [place] [address] EDGING MACHINE OPERATOR: JEANETTE GARCIA M.D. CLIA NUMBER [id number] [place]. [id number] 00:00:00* Test Item Value Reference Range Interpretation Comme nts TSH, THIRD GENERATION (test code = 2821) 2.020 UIU/ML [id number] 00:00:00* Test Item Value Reference Range Interpretation Comme nts TSH, THIRD GENERATION (test code = 2821) 2.020 UIU/ML [id number] 00:00:00* Test Item Value Reference Range Interpretation Comme nts TSH, THIRD GENERATION (test code = 2821) 2.020 UIU/ML [id number] 00:00:00* Test Item Value Reference Range Interpretation Comme nts TSH, THIRD GENERATION (test code = 2821) 2.020 UIU/ML [id number] 00:00:00* Test Item Value Reference Range Interpretation Comme nts TSH, THIRD GENERATION (test code = 2821) 2.020 UIU/ML [id number] 00:00:00* Test Item Value Reference Range Interpretation Comme nts TSH, THIRD GENERATION (test code = 2821) 2.020 UIU/ML PAP TEST, THINPREP, [id number] 16:59:16* Test Item Value Reference Range Interpretation Comme nts SOURCE: (test code = 8001) Cervical SLIDES: (test code = 8011) 1 LMP: (test code = 8021) NOT GIVEN SPECIMEN ADEQUACY: (test code = 38809) (NOTE) Satisfactory for evaluation. Endocervical cells/transformation zone component present. INTERPRETATION: (test code = 83217) NILM/NO EPITH. ABNORMALITY;SEE BELOW --- - NEGATIVE FOR INTRAEPITHELIAL LESION OR MALIGNANCY (NILM) ---- TUBE MAN : (test code = 8101) Flora Baker LOCATION: (test code = 72379) (NOTE) Specimens proces sed and interpreted at [facility], [address] [place] [address], , CLIA: [id number] CPT: (test code = 8140) (NOTE) [address] UNLESS OTH ERWISE INDICATED, COMPUTER AIDED AND TUBE MAN SCREENING PERFORMED. The Pap test is a screening test with an inherent, but low probability of error. Your patient should be reminded to consult you immediately if she experiences any suspicious signs or symptoms, regardless of her Pap test result. An alternate report format containing images or consolidated prior Pap history is available as applicable. UNLESS OTHERWISE INDICATED, ALL TESTING PERFORMED [facility] PATHOLOGY [facility], [facility]. [address] [place], [place] [address] EDGING MACHINE OPERATOR: JEANETTE GARCIA M.D. CLIA NUMBER [id number] [facility] [place]. [id number] PAP TEST, THINPREP, [id number] 00:00:00* Test Item Value Reference Range Interpretation Comme nts SOURCE: (test code = 8001) Cervical SLIDES: (test code = 8011) 1 LMP: (test code = 8021) NOT GIVEN SPECIMEN ADEQUACY: (test code = 33441) (NOTE) INTERPRETATION: (test code = 79094) NILM/NO EPITH. ABNORMALITY;SEE BELOW TUBE MAN: (test code = 8101) Flora Baker LOCATION: (test code = 82613) (NOTE) CPT: (test code = 8140) (NOTE) PAP TEST, THINPREP, [id number] 00:00:00* Test Item Value Reference Range Interpretation Comme nts SOURCE: (test code = 8001) Cervical SLIDES: (test code = 8011) 1 LMP: (test code = 8021) NOT GIVEN SPECIMEN ADEQUACY: (test code = 09768) (NOTE) INTERPRETATION: (test code = 20611) NILM/NO EPITH. ABNORMALITY;SEE BELOW TUBE MAN: (test code = 8101) Flora Baker LOCATION: (test code = 12848) (NOTE) CPT: (test code = 8140) (NOTE) PAP TEST, THINPREP, [id number] 00:00:00* Test Item Value Reference Range Interpretation Comme nts SOURCE: (test code = 8001) Cervical SLIDES: (test code = 8011) 1 LMP: (test code = 8021) NOT GIVEN SPECIMEN ADEQUACY: (test code = 51508) (NOTE) INTERPRETATION: (test code = 22243) NILM/NO EPITH. ABNORMALITY;SEE BELOW TUBE MAN: (test code = 8101) Flora [place]omb LOCATION: (test code = 35478) (NOTE) CPT: (test code = 8140) (NOTE) PAP TEST, THINPREP, [id number] 00:00:00* Test Item Value Reference Range Interpretation Comme nts SOURCE: (test code = 8001) Cervical SLIDES: (test code = 8011) 1 LMP: (test code = 8021) NOT GIVEN SPECIMEN ADEQUACY: (test code = 63455) (NOTE) INTERPRETATION: (test code = 26006) NILM/NO EPITH. ABNORMALITY;SEE BELOW TUBE MAN: (test code = 8101) Flora [place]omb LOCATION: (test code = 17588) (NOTE) CPT: (test code = 8140) (NOTE) SARS-CoV-2 (COVID-19), RT-[id number] 15:19:40* Test Item Value Reference Range Interpretation Comments SARS-CoV-2 INTERPRETATION (test code = 08041) NEGATIVE SEE NOTE SARS-CoV-2 R NA NOT [...] prevalence is high. SOURCE (test code = 61689) NOT SPECIFIED Note: Methodolog y is Sadie Wilfredo Real-Time RT-PCR. The expected result or reference range is NEGATIVE (Not Detected). For more information regarding COVID-19 testing to include clinicalinformation, methodology detail, intended use, FDA authorization andrecommended fact sheets for patients or healthcare providers, see [facility] Announcement: SARS-CoV-2 (COVID-19) by NAAT at URL below (note,fact sheets are provided by method given in report:[email or web address] Alternatively, see downloadable PDF fact sheet at:[email or web address] UNLESS OTHERWISE INDICATED, ALL TESTING PERFORMED [facility], [facility]. [address] [place] [address] EDGING MACHINE OPERATOR: JEANETTE GARCIA M.D. CLIA NUMBER [id number] [facility] [place]. [id number] SARS-CoV-2 (COVID-19) by RT-PCR (HIGH RISK)2021-10-25 00:00:00* Test Item Value Reference Range Interpretation Comme nts SARS-CoV-2 INTERPRETATION (t est code = 67916) NEGATIVE SOURCE (test code = 93229) NOT SPECIFIED SARS-CoV-2 (COVID-19) by RT-PCR (HIGH RISK)2021-10-25 00:00:00* Test Item Value Reference Range Interpretation Comme nts SARS-CoV-2 INTERPRETATION (t est code = 23523) NEGATIVE SOURCE (test code = 69584) NOT SPECIFIED SARS-CoV-2 (COVID-19) by RT-PCR (HIGH RISK)2021-10-25 00:00:00* Test Item Value Reference Range Interpretation Comme nts SARS-CoV-2 INTERPRETATION (t est code = 41763) NEGATIVE SOURCE (test code = 42539) NOT SPECIFIED SARS-CoV-2 (COVID-19) by RT-PCR (HIGH RISK)2021-10-25 00:00:00* Test Item Value Reference Range Interpretation Comme nts SARS-CoV-2 INTERPRETATION (t est code = 54304) NEGATIVE SOURCE (test code = 84145) NOT SPECIFIED [id number] 00:00:00* Test Item Value Reference Range Interpretation Comme nts TSH, THIRD GENERATION (test code = 2821) 2.750 UIU/ML [id number] 00:00:00* Test Item Value Reference Range Interpretation Comme nts TSH, THIRD GENERATION (test code = 2821) 2.750 UIU/ML [id number] 00:00:00* Test Item Value Reference Range Interpretation Comme nts TSH, THIRD GENERATION (test code = 2821) 2.750 UIU/ML [id number] 00:00:00* Test Item Value Reference Range Interpretation Comme nts TSH, THIRD GENERATION (test code = 2821) 2.750 UIU/ML [id number] 00:00:00* Test Item Value Reference Range Interpretation Comme nts TSH, THIRD GENERATION (test code = 2821) 2.750 UIU/ML [id number] 00:00:00* Test Item Value Reference Range Interpretation Comme nts TSH, THIRD GENERATION (test code = 2821) 2.750 UIU/ML [id number] 00:00:00* Test Item Value Reference Range Interpretation Comme nts TSH, THIRD GENERATION (test code = 2821) 3.440 UIU/ML [id number] 00:00:00* Test Item Value Reference Range Interpretation Comme nts TSH, THIRD GENERATION (test code = 2821) 3.440 UIU/ML [id number] 00:00:00* Test Item Value Reference Range Interpretation Comme nts TSH, THIRD GENERATION (test code = 2821) 3.440 UIU/ML [id number] 00:00:00* Test Item Value Reference Range Interpretation Comme nts TSH, THIRD GENERATION (test code = 2821) 3.440 UIU/ML [id number] 00:00:00* Test Item Value Reference Range Interpretation Comme nts TSH, THIRD GENERATION (test code = 2821) 3.440 UIU/ML [id number] 00:00:00* Test Item Value Reference Range Interpretation Comme nts TSH, THIRD GENERATION (test code = 2821) 3.440 UIU/ML [id number] 00:00:00* Test Item Value Reference Range Interpretation Comme nts TSH, THIRD GENERATION (test code = 2821) 3.190 UIU/ML [id number] 00:00:00* Test Item Value Reference Range Interpretation Comme nts TSH, THIRD GENERATION (test code = 2821) 3.190 UIU/ML [id number] 00:00:00* Test Item Value Reference Range Interpretation Comme nts TSH, THIRD GENERATION (test code = 2821) 3.190 UIU/ML [id number] 00:00:00* Test Item Value Reference Range Interpretation Comme nts TSH, THIRD GENERATION (test code = 2821) 3.190 UIU/ML [id number] 00:00:00* Test Item Value Reference Range Interpretation Comme nts TSH, THIRD GENERATION (test code = 2821) 3.190 UIU/ML [id number] 00:00:00* Test Item Value Reference Range Interpretation [...] GENERATION (test code = 2821) 3.550 UIU/ML [id number] 00:00:00* Test Item Value Reference Range Interpretation Comme nts TSH, THIRD GENERATION (test code = 2821) 4.090 UIU/ML [id number] 00:00:00* Test Item Value Reference Range Interpretation Comme nts TSH, THIRD GENERATION (test code = 2821) 4.090 UIU/ML [id number] 00:00:00* Test Item Value Reference Range Interpretation Comme nts TSH, THIRD GENERATION (test code = 2821) 4.090 UIU/ML CBC W/AUTO [id number] 00:00:00* Test Item Value Reference Range Interpretation [...] code = 1015) 241 K/UL CBC W/AUTO [id number] 00:00:00* Test Item Value Reference Range Interpretation [...] code = 1015) 241 K/UL CBC W/AUTO [id number] 00:00:00* Test Item Value Reference Range Interpretation [...] COUNT (test code = 1015) 241 K/UL [id number] 00:00:00* Test Item Value Reference Range Interpretation Comme nts TSH, THIRD GENERATION (test code = 2821) 4.090 UIU/ML [id number] 00:00:00* Test Item Value Reference Range Interpretation Comme nts TSH, THIRD GENERATION (test code = 2821) 4.090 UIU/ML [id number] 00:00:00* Test Item Value Reference Range Interpretation Comme nts TSH, THIRD GENERATION (test code = 2821) 4.090 UIU/ML CBC W/AUTO [id number] 00:00:00* Test Item Value Reference Range Interpretation [...] code = 1015) 241 K/UL CBC W/AUTO [id number] 00:00:00* Test Item Value Reference Range Interpretation [...] code = 1015) 241 K/UL CBC W/AUTO [id number] 00:00:00* Test Item Value Reference Range Interpretation [...] COUNT (test code = 1015) 241 K/UL [id number] 00:00:00* Test Item Value Reference Range Interpretation Comme nts TSH, THIRD GENERATION (test code = 2821) 6.140 UIU/ML [id number] 00:00:00* Test Item Value Reference Range Interpretation Comme nts TSH, THIRD GENERATION (test code = 2821) 6.140 UIU/ML [id number] 00:00:00* Test Item Value Reference Range Interpretation Comme nts TSH, THIRD GENERATION (test code = 2821) 6.140 UIU/ML CBC W/AUTO [id number] 00:00:00* Test Item Value Reference Range Interpretation [...] code = 1015) 242 K/UL CBC W/AUTO [id number] 00:00:00* Test Item Value Reference Range Interpretation [...] code = 1015) 242 K/UL CBC W/AUTO [id number] 00:00:00* Test Item Value Reference Range Interpretation [...] COUNT (test code = 1015) 242 K/UL [id number] 00:00:00* Test Item Value Reference Range Interpretation Comme nts TSH, THIRD GENERATION (test code = 2821) 6.140 UIU/ML [id number] 00:00:00* Test Item Value Reference Range Interpretation Comme nts TSH, THIRD GENERATION (test code = 2821) 6.140 UIU/ML [id number] 00:00:00* Test Item Value Reference Range Interpretation Comme nts TSH, THIRD GENERATION (test code = 2821) 6.140 UIU/ML CBC W/AUTO [id number] 00:00:00* Test Item Value Reference Range Interpretation [...] code = 1015) 242 K/UL CBC W/AUTO [id number] 00:00:00* Test Item Value Reference Range Interpretation [...] code = 1015) 242 K/UL CBC W/AUTO [id number] 00:00:00* Test Item Value Reference Range Interpretation [...] COUNT (test code = 1015) 242 K/UL [id number] 00:00:00* Test Item Value Reference Range Interpretation Comme nts TSH, THIRD GENERATION (test code = 2821) 3.760 UIU/ML [id number] 00:00:00* Test Item Value Reference Range Interpretation Comme nts TSH, THIRD GENERATION (test code = 2821) 3.760 UIU/ML [id number] 00:00:00* Test Item Value Reference Range Interpretation Comme nts TSH, THIRD GENERATION (test code = 2821) 3.760 UIU/ML [id number] 00:00:00* Test Item Value Reference Range Interpretation Comme nts TSH, THIRD GENERATION (test code = 2821) 3.760 UIU/ML [id number] 00:00:00* Test Item Value Reference Range Interpretation Comme nts TSH, THIRD GENERATION (test code = 2821) 3.760 UIU/ML [id number] 00:00:00* Test Item Value Reference Range Interpretation Comme nts TSH, THIRD GENERATION (test code = 2821) 3.760 UIU/ML LIPID [id number] 00:00:00* Test Item Value Reference Range Interpretation Comme nts CHOLESTEROL (test code = 2210) 180 MG/DL TRIGLYCERIDES (test code = 2232) 76 MG/DL HDL CHOLESTEROL (test code = 2220) 71 MG/DL CALC LDL CHOL (test code = 2237) 94 MG/DL RISK RATIO LDL/HDL (test cod e = 2238) 1.32 RATIO LIPID [id number] 00:00:00* Test Item Value Reference Range Interpretation Comme nts CHOLESTEROL (test code = 2210) 180 MG/DL TRIGLYCERIDES (test code = 2232) 76 MG/DL HDL CHOLESTEROL (test code = 2220) 71 MG/DL CALC LDL CHOL (test code = 2237) 94 MG/DL RISK RATIO LDL/HDL (test cod e = 2238) 1.32 RATIO CBC W/AUTO [id number] 00:00:00* Test Item Value Reference Range Interpretation [...] code = 1015) 236 K/UL CBC W/AUTO [id number] 00:00:00* Test Item Value Reference Range Interpretation [...] code = 1015) 236 K/UL CBC W/AUTO [id number] 00:00:00* Test Item Value Reference Range Interpretation [...] (test code = 1015) 236 K/UL HEMOGLOBIN [id number] 00:00:00* Test Item Value Reference Range Interpretation Comme nts HEMOGLOBIN A1c (test code = 67181) 5.4 % HEMOGLOBIN [id number] 00:00:00* Test Item Value Reference Range Interpretation Comme nts HEMOGLOBIN A1c (test code = 45025) 5.4 % HEMOGLOBIN [id number] 00:00:00* Test Item Value Reference Range Interpretation Comme nts HEMOGLOBIN A1c (test code = 81524) 5.4 % [id number] 00:00:00* Test Item Value Reference Range Interpretation Comme nts TSH, THIRD GENERATION (test code = 2821) 2.090 UIU/ML [id number] 00:00:00* Test Item Value Reference Range Interpretation Comme nts TSH, THIRD GENERATION (test code = 2821) 2.090 UIU/ML [id number] 00:00:00* Test Item Value Reference Range Interpretation Comme nts TSH, THIRD GENERATION (test code = 2821) 2.090 UIU/ML COMPREHENSIVE METABOLIC [id number] 00:00:00* Test Item Value Reference Range Interpretation Comme nts GLUCOSE (test code = 2217) 98 MG/DL BUN (test code = 2208) 8 MG/DL CREATININE (test code = 2214) 0.63 MG/DL eGFR AMER. (test cod e = 48119) 135 ML/MIN/1.73 eGFR NON- AMER. (test code = 85759) 116 ML/MIN/1.73 CALC BUN/CREAT (test code = [...] code = 2219) 13 U/L COMPREHENSIVE METABOLIC [id number] 00:00:00* Test Item Value Reference Range Interpretation Comme nts GLUCOSE (test code = 2217) 98 MG/DL BUN (test code = 2208) 8 MG/DL CREATININE (test code = 2214) 0.63 MG/DL eGFR AMER. (test cod e = 60251) 135 ML/MIN/1.73 eGFR NON- AMER. (test code = 84067) 116 ML/MIN/1.73 CALC BUN/CREAT (test code = [...] (test code = 2219) 13 U/L LIPID [id number] 00:00:00* Test Item Value Reference Range Interpretation Comme nts CHOLESTEROL (test code = 2210) 180 MG/DL TRIGLYCERIDES (test code = 2232) 76 MG/DL HDL CHOLESTEROL (test code = 2220) 71 MG/DL CALC LDL CHOL (test code = 2237) 94 MG/DL RISK RATIO LDL/HDL (test cod e = 2238) 1.32 RATIO LIPID [id number] 00:00:00* Test Item Value Reference Range Interpretation Comme nts CHOLESTEROL (test code = 2210) 180 MG/DL TRIGLYCERIDES (test code = 2232) 76 MG/DL HDL CHOLESTEROL (test code = 2220) 71 MG/DL CALC LDL CHOL (test code = 2237) 94 MG/DL RISK RATIO LDL/HDL (test cod e = 2238) 1.32 RATIO CBC W/AUTO [id number] 00:00:00* Test Item Value Reference Range Interpretation [...] code = 1015) 236 K/UL CBC W/AUTO [id number] 00:00:00* Test Item Value Reference Range Interpretation [...] code = 1015) 236 K/UL CBC W/AUTO [id number] 00:00:00* Test Item Value Reference Range Interpretation [...] (test code = 1015) 236 K/UL HEMOGLOBIN [id number] 00:00:00* Test Item Value Reference Range Interpretation Comme nts HEMOGLOBIN A1c (test code = 09980) 5.4 % HEMOGLOBIN [id number] 00:00:00* Test Item Value Reference Range Interpretation Comme nts HEMOGLOBIN A1c (test code = 37624) 5.4 % HEMOGLOBIN [id number] 00:00:00* Test Item Value Reference Range Interpretation Comme nts HEMOGLOBIN A1c (test code = 20503) 5.4 % [id number] 00:00:00* Test Item Value Reference Range Interpretation Comme nts TSH, THIRD GENERATION (test code = 2821) 2.090 UIU/ML [id number] 00:00:00* Test Item Value Reference Range Interpretation Comme nts TSH, THIRD GENERATION (test code = 2821) 2.090 UIU/ML [id number] 00:00:00* Test Item Value Reference Range Interpretation Comme nts TSH, THIRD GENERATION (test code = 2821) 2.090 UIU/ML COMPREHENSIVE METABOLIC [id number] 00:00:00* Test Item Value Reference Range Interpretation Comme nts GLUCOSE (test code = 2217) 98 MG/DL BUN (test code = 2208) 8 MG/DL CREATININE (test code = 2214) 0.63 MG/DL eGFR AMER. (test cod e = 52045) 135 ML/MIN/1.73 eGFR NON- AMER. (test code = 82367) 116 ML/MIN/1.73 CALC BUN/CREAT (test code = [...] code = 2219) 13 U/L COMPREHENSIVE METABOLIC [id number] 00:00:00* Test Item Value Reference Range Interpretation Comme nts GLUCOSE (test code = 2217) 98 MG/DL BUN (test code = 2208) 8 MG/DL CREATININE (test code = 2214) 0.63 MG/DL eGFR AMER. (test cod e = 37353) 135 ML/MIN/1.73 eGFR NON- AMER. (test code = 75976) 116 ML/MIN/1.73 CALC BUN/CREAT (test code = [...] 13 U/L VITAMIN B 12 AND FOLIC [id number] 00:00:00* Test Item Value Reference Range Interpretation Comme nts VITAMIN B-12 (test code = 2840) 348 PG/ML FOLIC ACID (test code = 2695) 13.0 UG/L VITAMIN B 12 AND FOLIC [id number] 00:00:00* Test Item Value Reference Range Interpretation Comme nts VITAMIN B-12 (test code = 2840) 348 PG/ML FOLIC ACID (test code = 2695) 13.0 UG/L HEMOGLOBIN [id number] 00:00:00* Test Item Value Reference Range Interpretation Comme nts HEMOGLOBIN A1c (test code = 23553) 5.3 % HEMOGLOBIN [id number] 00:00:00* Test Item Value Reference Range Interpretation Comme nts HEMOGLOBIN A1c (test code = 57951) 5.3 % HEMOGLOBIN [id number] 00:00:00* Test Item Value Reference Range Interpretation Comme nts HEMOGLOBIN A1c (test code = 82357) 5.3 % [id number] 00:00:00* Test Item Value Reference Range Interpretation Comme nts TSH, THIRD GENERATION (test code = 2821) 3.650 UIU/ML [id number] 00:00:00* Test Item Value Reference Range Interpretation Comme nts TSH, THIRD GENERATION (test code = 2821) 3.650 UIU/ML [id number] 00:00:00* Test Item Value Reference Range Interpretation Comme nts TSH, THIRD GENERATION (test code = 2821) 3.650 UIU/ML VITAMIN B 12 AND FOLIC [id number] 00:00:00* Test Item Value Reference Range Interpretation Comme nts VITAMIN B-12 (test code = 2840) 348 PG/ML FOLIC ACID (test code = 2695) 13.0 UG/L VITAMIN B 12 AND FOLIC [id number] 00:00:00* Test Item Value Reference Range Interpretation Comme nts VITAMIN B-12 (test code = 2840) 348 PG/ML FOLIC ACID (test code = 2695) 13.0 UG/L HEMOGLOBIN [id number] 00:00:00* Test Item Value Reference Range Interpretation Comme nts HEMOGLOBIN A1c (test code = 81886) 5.3 % HEMOGLOBIN [id number] 00:00:00* Test Item Value Reference Range Interpretation Comme nts HEMOGLOBIN A1c (test code = 85290) 5.3 % HEMOGLOBIN [id number] 00:00:00* Test Item Value Reference Range Interpretation Comme nts HEMOGLOBIN A1c (test code = 00075) 5.3 % [id number] 00:00:00* Test Item Value Reference Range Interpretation Comme nts TSH, THIRD GENERATION (test code = 2821) 3.650 UIU/ML [id number] 00:00:00* Test Item Value Reference Range Interpretation Comme nts TSH, THIRD GENERATION (test code = 2821) 3.650 UIU/ML [id number] 00:00:00* Test Item Value Reference Range Interpretation Comme nts TSH, THIRD GENERATION (test code = 2821) 3.650 UIU/ML [id number] 00:00:00* Test Item Value Reference Range Interpretation Comme nts TSH (test code = 2821) 3.040 UIU/ML [id number] 00:00:00* Test Item Value Reference Range Interpretation Comme nts TSH (test code = 2821) 3.040 UIU/ML [id number] 00:00:00* Test Item Value Reference Range Interpretation Comme nts TSH (test code = 2821) 3.040 UIU/ML [id number] 00:00:00* Test Item Value Reference Range Interpretation Comme nts TSH (test code = 2821) 3.040 UIU/ML [id number] 00:00:00* Test Item Value Reference Range Interpretation Comme nts TSH (test code = 2821) 3.040 UIU/ML [id number] 00:00:00* Test Item Value Reference Range Interpretation Comme nts TSH (test code = 2821) 3.040 UIU/ML [id number] 00:00:00* Test Item Value Reference Range Interpretation Comme nts TSH (test code = 2821) 3.620 UIU/ML [id number] 00:00:00* Test Item Value Reference Range Interpretation Comme nts TSH (test code = 2821) 3.620 UIU/ML [id number] 00:00:00* Test Item Value Reference Range Interpretation Comme nts TSH (test code = 2821) 3.620 UIU/ML COMPREHENSIVE METABOLIC [id number] 00:00:00* Test Item Value Reference Range Interpretation Comme nts GLUCOSE (test code = 2217) 80 MG/DL BUN (test code = 2208) 10 MG/DL CREATININE (test code = 2214) 0.73 MG/DL eGFR AMER. (test cod e = 75353) 125 ML/MIN/1.73 eGFR NON- AMER. (test code = 05926) 107 ML/MIN/1.73 CALC BUN/CREAT (test code = [...] code = 2219) 9 U/L COMPREHENSIVE METABOLIC [id number] 00:00:00* Test Item Value Reference Range Interpretation Comme nts GLUCOSE (test code = 2217) 80 MG/DL BUN (test code = 2208) 10 MG/DL CREATININE (test code = 2214) 0.73 MG/DL eGFR AMER. (test cod e = 87187) 125 ML/MIN/1.73 eGFR NON- AMER. (test code = 44123) 107 ML/MIN/1.73 CALC BUN/CREAT (test code = [...] (test code = 2219) 9 U/L HEMOGLOBIN [id number] 00:00:00* Test Item Value Reference Range Interpretation Comme nts HEMOGLOBIN A1c (test code = 45696) 5.1 % HEMOGLOBIN [id number] 00:00:00* Test Item Value Reference Range Interpretation Comme nts HEMOGLOBIN A1c (test code = 95270) 5.1 % HEMOGLOBIN [id number] 00:00:00* Test Item Value Reference Range Interpretation Comme nts HEMOGLOBIN A1c (test code = 49392) 5.1 % [id number] 00:00:00* Test Item Value Reference Range Interpretation Comme nts TSH (test code = 2821) 3.620 UIU/ML [id number] 00:00:00* Test Item Value Reference Range Interpretation Comme nts TSH (test code = 2821) 3.620 UIU/ML [id number] 00:00:00* Test Item Value Reference Range Interpretation Comme nts TSH (test code = 2821) 3.620 UIU/ML COMPREHENSIVE METABOLIC [id number] 00:00:00* Test Item Value Reference Range Interpretation Comme nts GLUCOSE (test code = 2217) 80 MG/DL BUN (test code = 2208) 10 MG/DL CREATININE (test code = 2214) 0.73 MG/DL eGFR AMER. (test cod e = 75414) 125 ML/MIN/1.73 eGFR NON- AMER. (test code = 13742) 107 ML/MIN/1.73 CALC BUN/CREAT (test code = [...] code = 2219) 9 U/L COMPREHENSIVE METABOLIC [id number] 00:00:00* Test Item Value Reference Range Interpretation Comme nts GLUCOSE (test code = 2217) 80 MG/DL BUN (test code = 2208) 10 MG/DL CREATININE (test code = 2214) 0.73 MG/DL eGFR AMER. (test cod e = 84618) 125 ML/MIN/1.73 eGFR NON- AMER. (test code = 18236) 107 ML/MIN/1.73 CALC BUN/CREAT (test code = [...] (test code = 2219) 9 U/L HEMOGLOBIN [id number] 00:00:00* Test Item Value Reference Range Interpretation Comme nts HEMOGLOBIN A1c (test code = 73547) 5.1 % HEMOGLOBIN [id number] 00:00:00* Test Item Value Reference Range Interpretation Comme nts HEMOGLOBIN A1c (test code = 57755) 5.1 % HEMOGLOBIN [id number] 00:00:00* Test Item Value Reference Range Interpretation Comme nts HEMOGLOBIN A1c (test code = 29222) 5.1 % THYROID II PROFILE (T3U, T4, [...] TSH (test code = 2821) 3.700 UIU/ML [id number] 00:00:00* Test Item Value Reference Range Interpretation Comme nts TSH (test code = 2821) 3.74 UIU/ML [id number] 00:00:00* Test Item Value Reference Range Interpretation Comme nts TSH (test code = 2821) 3.74 UIU/ML [id number] 00:00:00* Test Item Value Reference Range Interpretation Comme nts TSH (test code = 2821) 3.74 UIU/ML [id number] 00:00:00* Test Item Value Reference Range Interpretation Comme nts TSH (test code = 2821) 3.74 UIU/ML [id number] 00:00:00* Test Item Value Reference Range Interpretation Comme nts TSH (test code = 2821) 3.74 UIU/ML [id number] 00:00:00* Test Item Value Reference Range Interpretation [...] 7.65 UIU/ML HPV HIGH RISK WITH GENOTYPE, [id number] 00:00:00* Test Item Value Reference Range Interpretation Comme nts HPV HIGH RISK INTERP (test c ode = 60608) NEGATIVE HPV 16 (test code = 58004) NEGATIVE HPV 18 (test code = 95630) NEGATIVE HPV, HR, OTHER GENOTYPES (te st code = 48912) NEGATIVE HPV HIGH RISK WITH GENOTYPE, [id number] 00:00:00* Test Item Value Reference Range Interpretation Comme nts HPV HIGH RISK INTERP (test c ode = 20158) NEGATIVE HPV 16 (test code = 19904) NEGATIVE HPV 18 (test code = 30337) NEGATIVE HPV, HR, OTHER GENOTYPES (te st code = 98284) NEGATIVE CHLAMYDIA, AMPLIFIED, [id number] 00:00:00* Test Item Value Reference Range Interpretation Comme nts CHLAMYDIA, TMA (test code = 53732) NEGATIVE CHLAMYDIA, AMPLIFIED, [id number] 00:00:00* Test Item Value Reference Range Interpretation Comme nts CHLAMYDIA, TMA (test code = 02784) NEGATIVE GC, AMPLIFIED, [id number] 00:00:00* Test Item Value Reference Range Interpretation Comme nts GONORRHEA, TMA (test code = 75396) NEGATIVE GC, AMPLIFIED, [id number] 00:00:00* Test Item Value Reference Range Interpretation Comme nts GONORRHEA, TMA (test code = 94756) NEGATIVE PAP TEST, THINPREP, [id number] 00:00:00* Test Item Value Reference Range Interpretation Comme nts SOURCE: (test code = 8001) Cervical/Endocervical SLIDES: (test code = 8011) 1 LMP: (test code = 8021) 12/07/2016 SPECIMEN ADEQUACY: (test code = 03150) (NOTE) INTERPRETATION: (test code = 29212) NO EPITHELIAL ABNORMALITY SEE BELOW TUBE MAN: (test code = 8101) SILVIO MCKEON,CT(ASCP) LOCATION: (test code = 60732) (NOTE) CPT: (test code = 8140) (NOTE) PAP TEST, THINPREP, [id number] 00:00:00* Test Item Value Reference Range Interpretation Comme nts SOURCE: (test code = 8001) Cervical/Endocervical SLIDES: (test code = 8011) 1 LMP: (test code = 8021) 12/07/2016 SPECIMEN ADEQUACY: (test code = 79844) (NOTE) INTERPRETATION: (test code = 27980) NO EPITHELIAL ABNORMALITY SEE BELOW TUBE MAN: (test code = 8101) SILVIO WongZee MCKEON,CT(ASCP) LOCATION: (test code = 83193) (NOTE) CPT: (test code = 8140) (NOTE) HPV HIGH RISK WITH GENOTYPE, [id number] 00:00:00* Test Item Value Reference Range Interpretation Comme nts HPV HIGH RISK INTERP (test c ode = 14285) NEGATIVE HPV 16 (test code = 10197) NEGATIVE HPV 18 (test code = 77149) NEGATIVE HPV, HR, OTHER GENOTYPES (te st code = 85431) NEGATIVE HPV HIGH RISK WITH GENOTYPE, [id number] 00:00:00* Test Item Value Reference Range Interpretation Comme nts HPV HIGH RISK INTERP (test c ode = 50072) NEGATIVE HPV 16 (test code = 15219) NEGATIVE HPV 18 (test code = 32098) NEGATIVE HPV, HR, OTHER GENOTYPES (te st code = 36568) NEGATIVE CHLAMYDIA, AMPLIFIED, [id number] 00:00:00* Test Item Value Reference Range Interpretation Comme nts CHLAMYDIA, TMA (test code = 43339) NEGATIVE CHLAMYDIA, AMPLIFIED, [id number] 00:00:00* Test Item Value Reference Range Interpretation Comme nts CHLAMYDIA, TMA (test code = 03073) NEGATIVE GC, AMPLIFIED, [id number] 00:00:00* Test Item Value Reference Range Interpretation Comme nts GONORRHEA, TMA (test code = 86276) NEGATIVE GC, AMPLIFIED, [id number] 00:00:00* Test Item Value Reference Range Interpretation Comme nts GONORRHEA, TMA (test code = 50293) NEGATIVE PAP TEST, THINPREP, [id number] 00:00:00* Test Item Value Reference Range Interpretation Comme nts SOURCE: (test code = 8001) Cervical/Endocervical SLIDES: (test code = 8011) 1 LMP: (test code = 8021) 12/07/2016 SPECIMEN ADEQUACY: (test code = 06814) (NOTE) INTERPRETATION: (test code = 98620) NO EPITHELIAL ABNORMALITY SEE BELOW TUBE MAN: (test code = 8101) GABBI DAILY(ASCP) LOCATION: (test code = 38686) (NOTE) CPT: (test code = 8140) (NOTE) PAP TEST, THINPREP, [id number] 00:00:00* Test Item Value Reference Range Interpretation Comme nts SOURCE: (test code = 8001) Cervical/Endocervical SLIDES: (test code = 8011) 1 LMP: (test code = 8021) 12/07/2016 SPECIMEN ADEQUACY: (test code = 89638) (NOTE) INTERPRETATION: (test code = 13588) NO EPITHELIAL ABNORMALITY SEE BELOW TUBE MAN: (test code = 8101) GABBI DAILY(ASCP) LOCATION: (test code = 13199) (NOTE) CPT: (test code = 8140) (NOTE) LIPID [id number] 00:00:00* Test Item Value Reference Range Interpretation Comme nts CHOLESTEROL (test code = 2210) 181 MG/DL TRIGLYCERIDES (test code = 2232) 82 MG/DL HDL CHOLESTEROL (test code = 2220) 68 MG/DL CALC LDL CHOL (test code = 2237) 97 MG/DL RISK RATIO LDL/HDL (test cod e = 2238) 1.42 RATIO LIPID [id number] 00:00:00* Test Item Value Reference Range Interpretation Comme nts CHOLESTEROL (test code = 2210) 181 MG/DL TRIGLYCERIDES (test code = 2232) 82 MG/DL HDL CHOLESTEROL (test code = 2220) 68 MG/DL CALC LDL CHOL (test code = 2237) 97 MG/DL RISK RATIO LDL/HDL (test cod e = 2238) 1.42 RATIO CBC W/AUTO [id number] 00:00:00* Test Item Value Reference Range Interpretation [...] code = 1015) 245 K/UL CBC W/AUTO [id number] 00:00:00* Test Item Value Reference Range Interpretation [...] code = 1015) 245 K/UL CBC W/AUTO [id number] 00:00:00* Test Item Value Reference Range Interpretation [...] (test code = 1015) 245 K/UL HEMOGLOBIN [id number] 00:00:00* Test Item Value Reference Range Interpretation Comme nts HEMOGLOBIN A1c (test code = 98254) 6.0 % HEMOGLOBIN [id number] 00:00:00* Test Item Value Reference Range Interpretation Comme nts HEMOGLOBIN A1c (test code = 32708) 6.0 % HEMOGLOBIN [id number] 00:00:00* Test Item Value Reference Range Interpretation Comme nts HEMOGLOBIN A1c (test code = 71214) 6.0 % [id number] 00:00:00* Test Item Value Reference Range Interpretation Comme nts TSH (test code = 2821) 5.22 UIU/ML [id number] 00:00:00* Test Item Value Reference Range Interpretation Comme nts TSH (test code = 2821) 5.22 UIU/ML [id number] 00:00:00* Test Item Value Reference Range Interpretation Comme nts TSH (test code = 2821) 5.22 UIU/ML [id number] 00:00:00* Test Item Value Reference Range Interpretation Comme nts RPR RESULT (test code = 3501) NON-REACTIVE RPR TITER (test code = 3500) NOT INDIC. TITER [id number] 00:00:00* Test Item Value Reference Range Interpretation Comme nts RPR RESULT (test code = 3501) NON-REACTIVE RPR TITER (test code = 3500) NOT INDIC. TITER [id number] 00:00:00* Test Item Value Reference Range Interpretation Comme nts RPR RESULT (test code = 3501) NON-REACTIVE RPR TITER (test code = 3500) NOT INDIC. TITER HIV AB/AG COMBO RFLX [id number] 00:00:00* Test Item Value Reference Range Interpretation Comme nts HIV 1/2 4TH GEN, RFLX CONF ( test code = 3514) NON-REACTIVE HIV AB/AG COMBO RFLX [id number] 00:00:00* Test Item Value Reference Range Interpretation Comme nts HIV 1/2 4TH GEN, RFLX CONF ( test code = 3514) NON-REACTIVE ACUTE HEPATITIS [id number] 00:00:00* Test Item Value Reference Range Interpretation Comme nts HEPATITIS A IgM (test code = 74083) NON-REACTIVE HEPATITIS B CORE IgM (test c ode = 4644) NON-REACTIVE HEPATITIS B SURF AG (test co de = 2739) NON-REACTIVE HEPATITIS C ANTIBODY (test c ode = 4675) NON-REACTIVE INTERPRETATION HEPATITIS A: (test code = 2552) (NOTE) INTERPRETATION HEPATITIS B: (test code = 17318) (NOTE) INTERPRETATION HEPATITIS C: (test code = 40458) (NOTE) ACUTE HEPATITIS [id number] 00:00:00* Test Item Value Reference Range Interpretation Comme nts HEPATITIS A IgM (test code = 22310) NON-REACTIVE HEPATITIS B CORE IgM (test c ode = 4644) NON-REACTIVE HEPATITIS B SURF AG (test co de = 2739) NON-REACTIVE HEPATITIS C ANTIBODY (test c ode = 4675) NON-REACTIVE INTERPRETATION HEPATITIS A: (test code = 2552) (NOTE) INTERPRETATION HEPATITIS B: (test code = 71356) (NOTE) INTERPRETATION HEPATITIS C: (test code = 04723) (NOTE) COMPREHENSIVE METABOLIC [id number] 00:00:00* Test Item Value Reference Range Interpretation Comme nts GLUCOSE (test code = 2217) 90 MG/DL BUN (test code = 2208) 12 MG/DL CREATININE (test code = 2214) 0.62 MG/DL eGFR AMER. (test cod e = 28294) 137 ML/MIN/1.73 eGFR NON- AMER. (test code = 86025) 118 ML/MIN/1.73 CALC BUN/CREAT (test code = [...] code = 2219) 10 U/L COMPREHENSIVE METABOLIC [id number] 00:00:00* Test Item Value Reference Range Interpretation Comme nts GLUCOSE (test code = 2217) 90 MG/DL BUN (test code = 2208) 12 MG/DL CREATININE (test code = 2214) 0.62 MG/DL eGFR AMER. (test cod e = 90863) 137 ML/MIN/1.73 eGFR NON- AMER. (test code = 28323) 118 ML/MIN/1.73 CALC BUN/CREAT (test code = [...] (test code = 2219) 10 U/L LIPID [id number] 00:00:00* Test Item Value Reference Range Interpretation Comme nts CHOLESTEROL (test code = 2210) 181 MG/DL TRIGLYCERIDES (test code = 2232) 82 MG/DL HDL CHOLESTEROL (test code = 2220) 68 MG/DL CALC LDL CHOL (test code = 2237) 97 MG/DL RISK RATIO LDL/HDL (test cod e = 2238) 1.42 RATIO LIPID [id number] 00:00:00* Test Item Value Reference Range Interpretation Comme nts CHOLESTEROL (test code = 2210) 181 MG/DL TRIGLYCERIDES (test code = 2232) 82 MG/DL HDL CHOLESTEROL (test code = 2220) 68 MG/DL CALC LDL CHOL (test code = 2237) 97 MG/DL RISK RATIO LDL/HDL (test cod e = 2238) 1.42 RATIO CBC W/AUTO [id number] 00:00:00* Test Item Value Reference Range Interpretation [...] code = 1015) 245 K/UL CBC W/AUTO [id number] 00:00:00* Test Item Value Reference Range Interpretation [...] code = 1015) 245 K/UL CBC W/AUTO [id number] 00:00:00* Test Item Value Reference Range Interpretation [...] (test code = 1015) 245 K/UL HEMOGLOBIN [id number] 00:00:00* Test Item Value Reference Range Interpretation Comme nts HEMOGLOBIN A1c (test code = 86500) 6.0 % HEMOGLOBIN [id number] 00:00:00* Test Item Value Reference Range Interpretation Comme nts HEMOGLOBIN A1c (test code = 14228) 6.0 % HEMOGLOBIN [id number] 00:00:00* Test Item Value Reference Range Interpretation Comme nts HEMOGLOBIN A1c (test code = 14373) 6.0 % [id number] 00:00:00* Test Item Value Reference Range Interpretation Comme nts TSH (test code = 2821) 5.22 UIU/ML [id number] 00:00:00* Test Item Value Reference Range Interpretation Comme nts TSH (test code = 2821) 5.22 UIU/ML [id number] 00:00:00* Test Item Value Reference Range Interpretation Comme nts TSH (test code = 2821) 5.22 UIU/ML [id number] 00:00:00* Test Item Value Reference Range Interpretation Comme nts RPR RESULT (test code = 3501) NON-REACTIVE RPR TITER (test code = 3500) NOT INDIC. TITER [id number] 00:00:00* Test Item Value Reference Range Interpretation Comme nts RPR RESULT (test code = 3501) NON-REACTIVE RPR TITER (test code = 3500) NOT INDIC. TITER [id number] 00:00:00* Test Item Value Reference Range Interpretation Comme nts RPR RESULT (test code = 3501) NON-REACTIVE RPR TITER (test code = 3500) NOT INDIC. TITER HIV AB/AG COMBO RFLX [id number] 00:00:00* Test Item Value Reference Range Interpretation Comme nts HIV 1/2 4TH GEN, RFLX CONF ( test code = 3514) NON-REACTIVE HIV AB/AG COMBO RFLX [id number] 00:00:00* Test Item Value Reference Range Interpretation Comme nts HIV 1/2 4TH GEN, RFLX CONF ( test code = 3514) NON-REACTIVE ACUTE HEPATITIS [id number] 00:00:00* Test Item Value Reference Range Interpretation Comme nts HEPATITIS A IgM (test code = 81897) NON-REACTIVE HEPATITIS B CORE IgM (test c ode = 4644) NON-REACTIVE HEPATITIS B SURF AG (test co de = 2739) NON-REACTIVE HEPATITIS C ANTIBODY (test c ode = 4675) NON-REACTIVE INTERPRETATION HEPATITIS A: (test code = 2552) (NOTE) INTERPRETATION HEPATITIS B: (test code = 32982) (NOTE) INTERPRETATION HEPATITIS C: (test code = 73805) (NOTE) ACUTE HEPATITIS [id number] 00:00:00* Test Item Value Reference Range Interpretation Comme nts HEPATITIS A IgM (test code = 44301) NON-REACTIVE HEPATITIS B CORE IgM (test c ode = 4644) NON-REACTIVE HEPATITIS B SURF AG (test co de = 2739) NON-REACTIVE HEPATITIS C ANTIBODY (test c ode = 4675) NON-REACTIVE INTERPRETATION HEPATITIS A: (test code = 2552) (NOTE) INTERPRETATION HEPATITIS B: (test code = 42367) (NOTE) INTERPRETATION HEPATITIS C: (test code = 07197) (NOTE) COMPREHENSIVE METABOLIC [id number] 00:00:00* Test Item Value Reference Range Interpretation Comme nts GLUCOSE (test code = 2217) 90 MG/DL BUN (test code = 2208) 12 MG/DL CREATININE (test code = 2214) 0.62 MG/DL eGFR AMER. (test cod e = 46839) 137 ML/MIN/1.73 eGFR NON- AMER. (test code = 27194) 118 ML/MIN/1.73 CALC BUN/CREAT (test code = [...] code = 2219) 10 U/L COMPREHENSIVE METABOLIC [id number] 00:00:00* Test Item Value Reference Range Interpretation Comme nts GLUCOSE (test code = 2217) 90 MG/DL BUN (test code = 2208) 12 MG/DL CREATININE (test code = 2214) 0.62 MG/DL eGFR AMER. (test cod e = 16661) 137 ML/MIN/1.73 eGFR NON- AMER. (test code = 86507) 118 ML/MIN/1.73 CALC BUN/CREAT (test code = [...]
[2023-12-22 20:43] LABS: Specific Gravity < 1.005 (1.005-1.030)
[2023-12-22 20:44] LABS: Specific Gravity < 1.005 (1.005-1.030); Sqamous Epithelial <5 /HPF (None Seen); Urine Bacteria <20 /HPF (<20); Urine Bilirubin NEGATIVE (Negative); Urine Blood Trace (Negative); Urine Clarity Turbid (Clear); Urine Color Colorless (Yellow); Urine Culture Reflex Order NOT NEEDED; Urine Glucose NEGATIVE (Negative); Urine Ketones 1+ (Negative); Urine Microscopic Reflex YN ORDER UMIC; Urine Nitrite NEGATIVE (Negative); Urine Protein NEGATIVE (Negative); Urine RBC <5 /HPF (None Seen); Urine Urobilinogen Normal (Normal); Urine WBC <5 /HPF (<5); Urine pH 6.5 (5.0-7.0)
--- NOTE | 2023-12-22 21:05 | RAD REPORT ---
EXAM DESCRIPTION: US - Abdomen Exam Limited - 12/22/2023 8:45 pm CLINICAL HISTORY: ABD PAIN COMPARISON: Abdomen Exam Limited dated 12/19/2023 TECHNIQUE: Sonographic grayscale and color flow images of the right upper abdominal quadrant were o btained. FINDINGS: The gallbladder is filled with sludge and possible small nonshadowing stones. No perichole cystic fluid or gallbladder wall thickening. The common bile duct is normal measuring 3 mm. The liver demonstrates no findings of intrahepatic biliary dilatation. IMPRESSION: Sludge and possible small stones within the gallbladder. No sonographic findings to sugg est acute cholecystitis.
[2023-12-22 21:57] LABS: Absolute Lymphocytes (CBC) 2.1 K/uL (0.7-4.9); Absolute Monocytes 0.5 K/uL (0.1-1.3); Absolute Neutrophil 5.7 K/uL (1.8-8.0); Basophils % 0.5 % (0-1.3); Eosinophils % 0.3 % (0-4.4); Hematocrit 37.8 % (36.0-45.0); Hemoglobin 12.5 g/dL (12.0-15.0); Lymphocytes % 24.9 % (15.3-44.8); MCH 29.1 pg (27.0-35.0); MCHC 33.1 g/dL (32.0-36.0); MCV 88.1 fL (80-100); MPV 8.8 fL (7.6-11.3); Monocytes % 6.3 % (3.3-12.3); Nucleated Red Blood Cells % 0.1 % (0-0); Platelets 285 thou/uL (152-406); RBC Red Blood Cell Count 4.29 M/uL (3.86-4.86); Red Cell Distribution Width 13.6 % (12.1-15.2)
[2023-12-22 22:15] LABS: Albumin 4.3 g/dL (3.4-5.0); Anion Gap 10.2 mEq/L (5.0-15.0); Bilirubin Total 0.4 mg/dL (0.2-1.0); Globulin 4.4 g/dL (2.3-3.5); Potassium 3.2 mEq/L (3.5-5.1); Protein, Total 8.7 g/dL (6.4-8.2)
--- NOTE | 2023-12-22 22:23 | ER ---
Nurse's Notes [facility] Name: Lisset Lam Age: 38 yrs Sex: Female : 1985 Arrival Date: 12/22/2023 Time: 20:01 Bed 18 Private MD: Diagnosis: Other cholelithiasis without obstruction Presentation: 12/21 20:12 Chief complaint: Patient states: RUQ abdominal pressure onset yesterday. Pt reports cm10 bloating, denies N/V/D. Pt reports taking Bentyl 3 times a day since Saturday. Pt reports burning with urination. Coronavirus screen: Client denies travel out of the [place] in the last 14 days. At this time, the client does not indicate any symptoms associated with coronavirus-19. Ebola Screen: Patient denies travel to an Ebola-affected area in the 21 days before illness onset. No symptoms or risks identified at this time. Initial Sepsis Screen: Does the patient meet any 2 criteria? HR > 90 bpm. Initial Sepsis Screen: Does the patient have a suspected source of infection? No. Patient's initial sepsis screen is negative. Risk Assessment: Do you want to hurt yourself or someone else?. Onset of symptoms was December 22, 2023. 20:12 Method Of Arrival: Ambulatory cm10 20:12 Acuity: MAMIE 3 cm10 Triage Assessment: 20:15 General: Appears in no apparent distress. comfortable, Behavior is calm, cooperative. cm10 Pain: Complains of pain in right upper quadrant Pain does not radiate. Pain currently is 4 out of 10 on a pain scale. Quality of pain is described as pressure. Cardiovascular: Patient's skin is warm and dry. Respiratory: No deficits noted. Airway is patent Respiratory effort is even, unlabored, Respiratory pattern is regular, symmetrical. Historical: - Allergies: 20:15 PENICILLINS; cm10 - PSHx: 20:15 tubal ligation; cm10 - Immunization history:: Adult Immunizations up to date. - Social history:: Smoking status: Patient denies any tobacco usage or history of. Screenin:56 [facility] ED Fall Risk Assessment (Adult) History of falling in the last 3 months, jw7 including since admission No falls in past 3 months (0 pts) Confusion or Disorientation No (0 pts) Intoxicated or Sedated No (0 pts) Impaired Gait No (0 pts) Mobility Assist Device Used No (0 pt) Altered Elimination No (0 pt) Score/Fall Risk Level 0 - 2 = Low Risk Oriented to surroundings, Maintained a safe environment, Educated pt \T\ family on fall prevention, incl call for assistance when getting out of bed. Abuse screen: Denies threats or abuse. Denies injuries from another. Nutritional screening: No deficits noted. Tuberculosis screening: No symptoms or risk factors identified. Assessment: 21:53 General: Appears in no apparent distress. comfortable, Behavior is calm, cooperative. jw7 Pain: Complains of pain in abdomen Pain does not radiate. Pain currently is 4 out of 10 on a pain scale. Quality of pain is described as pressure, Pain began suddenly, Is continuous. Neuro: Level of Consciousness is awake, alert, obeys commands, Oriented to person, place, time, situation. Cardiovascular: Denies chest pain, Heart tones S1 S2 present Capillary refill < 3 seconds Clubbing of nail beds is absent JVD is absent Patient's skin is warm and dry. Respiratory: Airway is patent Trachea midline Respiratory effort is even, unlabored, Respiratory pattern is regular, symmetrical, Breath sounds are clear bilaterally. GI: Abdomen is flat, non-distended, Bowel sounds present X 4 quads. Abd is soft X 4 quads Abdomen is tender to palpation in right upper quadrant Reports upper abdominal pain. : No deficits noted. No signs and/or symptoms were reported regarding the genitourinary system. EENT: No deficits noted. No signs and/or symptoms were reported regarding the EENT system. Derm: Skin is intact, is healthy with good turgor, Skin is dry, Skin is normal, Skin temperature is warm. Musculoskeletal: Circulation, motion, and sensation intact. Range of motion: intact in all extremities. 23:02 Reassessment: Patient appears in no apparent distress at this time. No changes from jw7 previously documented assessment. Patient and/or family updated on plan of care and expected duration. Pain level reassessed. Patient is alert, oriented x 3, equal unlabored respirations, skin warm/dry/pink. Vital Signs: 20:12 BP 134 / 89; Pulse 92; Resp 16; Temp 97.3; Pulse Ox 100% on R/A; Weight 67.13 kg (R); cm10 Height 5 ft. 6 in. ; Pain 5/10; 21:55 BP 120 / 74; Pulse 74; Resp 16 S; Pulse Ox 100% on R/A; jw7 22:30 BP 106 / 82; Pulse 72; Resp 16 S; Pulse Ox 100% on R/A; jw7 20:12 Body Mass Index 23.89 (67.13 kg, 167.64 cm) cm10 20:12 Pain Scale: Adult cm10 ED Course: 20:06 Patient arrived in ED. im 20:15 Triage completed. cm10 20:15 Livia Helton FNP-C is PHCP. kb 20:15 Madelyn Munguia is Attending Physician. kb 20:15 Arm band placed on Patient placed in waiting room. cm10 20:47 Abdomen Limited US In Process Unspecified. EDMS 21:39 Waits, Lyndsey RN is Primary Nurse. jw7 21:41 Patient taken to an exam room, ambulatory. jb4 21:41 Door closed. Warm blanket given. jb4 21:53 Initial lab(s) drawn, by ar, sent to lab. Inserted saline lock: 22 gauge in right jw7 antecubital area, using aseptic technique. Blood collected. 21:56 Patient has correct armband on for positive identification. Placed in gown. Bed in low jw7 position. Call light in reach. Provided Education on: Use of Call Light. 23:01 No provider procedures requiring assistance completed. IV discontinued, intact, jw7 bleeding controlled, No redness/swelling at site. Pressure dressing applied. Administered Medications: 23:01 Not Given (Patient Refused): potassium [id number] meq PO once jw7 23:01 Drug: Potassium PO Effervescent Tablet 25 mEq PO once; dissolve in 4 ounces of water or jw7 juice Route: PO; 23:03 Follow up: Response: No adverse reaction jw7 Medication: 23:02 VIS not applicable for this client. jw7 Outcome: 22:23 Discharge ordered by . christopher 23:02 Discharged to home ambulatory, jw7 23:02 Condition: stable 23:02 Discharge instructions given to patient, family, Instructed on discharge instructions, follow up and referral plans. Demonstrated understanding of instructions, follow-up care, 23:03 Patient left the ED. jw7 Signatures: Dispatcher [employer] [facility] Livia Helton FNP-C FNP-Ckb Bryson, James, RN RN jb4 Lyndsey Garcia RN RN jw7 Desi Darden Clarissa RN RN cm10
--- NOTE | 2023-12-22 22:23 | EDPHYS ---
Physician Documentation [facility] Name: Lisset Lam Age: 38 yrs Sex: Female : 1985 Arrival Date: 12/22/2023 Time: 20:01 Bed 18 Private MD: ED Physician Madelyn Munguia HPI: 12/21 23:39 This 38 yrs old Female presents to ER via Ambulatory with complaints of kb Abdominal Pain. 23:39 Patient is a 38-year-old female who presents for pressure to right upper quadrant that kb started today. States she was seen here on Saturday and diagnosed with cholelithiasis so she has been taking Bentyl 3 times a day. States today she feels very bloated.. Historical: - Allergies: 20:15 PENICILLINS; cm10 - PSHx: 20:15 tubal ligation; cm10 - Immunization history:: Adult Immunizations up to date. - Social history:: Smoking status: Patient denies any tobacco usage or history of. ROS: 23:39 Constitutional: As per HPI kb Exam: 23:39 Constitutional: This is a well developed, well nourished patient who is awake, alert, kb and in no acute distress. Head/Face: Normocephalic, atraumatic. ENT: Moist Mucous membranes Cardiovascular: Regular rate Respiratory: Respirations even and unlabored. No increased work of breathing. Talking in full sentences Abdomen/GI: Soft, non-tender. No distention Skin: Warm, dry with normal turgor. Normal color. MS/ Extremity: Pulses equal, no cyanosis. Neurovascular intact. Full, normal range of motion. Neuro: Awake and alert, GCS 15, oriented to person, place, time, and situation. Moves all extremities. Normal gait. Vital Signs: 20:12 BP 134 / 89; Pulse 92; Resp 16; Temp 97.3; Pulse Ox 100% on R/A; Weight 67.13 kg (R); cm10 Height 5 ft. 6 in. ; Pain 5/10; 21:55 BP 120 / 74; Pulse 74; Resp 16 S; Pulse Ox 100% on R/A; jw7 22:30 BP 106 / 82; Pulse 72; Resp 16 S; Pulse Ox 100% on R/A; jw7 20:12 Body Mass Index 23.89 (67.13 kg, 167.64 cm) cm10 20:12 Pain Scale: Adult cm10 MDM: 20:15 Patient medically screened. kb 23:39 Differential diagnosis: cholecystitis, Cholelithiasis, gastritis, gastroesophageal kb reflux disease, non-specific abd pain. Data reviewed: vital signs, nurses notes. Counseling: I had a detailed discussion with the patient and/or guardian regarding the historical points, exam findings, and any diagnostic results supporting the discharge/admit diagnosis, lab results, radiology results, the need for outpatient follow up, a general surgeon, to return to the emergency department if symptoms worsen or persist or if there are any questions or concerns that arise at home. 12/21 20:18 Order name: CBC with Diff; Complete Time: 22:22 kb 12/21 20:18 Order name: CMP; Complete Time: 22:16 kb 12/21 20:18 Order name: Lipase; Complete Time: 22:16 kb 12/21 20:18 Order name: Test, Urine; Complete Time: 20:44 kb 12/21 20:18 Order name: Urinalysis w/ reflexes; Complete Time: 20:46 kb 12/21 20:18 Order name: Abdomen Limited US; Complete Time: 21:08 kb 12/21 20:18 Order name: IV Saline Lock; Complete Time: 21:52 kb 12/21 20:18 Order name: Labs collected and sent; Complete Time: 21:53 kb Administered Medications: 23:01 Not Given (Patient Refused): potassium [id number] meq PO once jw7 23:01 Drug: Potassium PO Effervescent Tablet 25 mEq PO once; dissolve in 4 ounces of water or jw7 juice Route: PO; 23:03 Follow up: Response: No adverse reaction jw7 Disposition Summary: 12/22/23 22:23 Discharge Ordered Notes: Location: Home kb Condition: Stable kb Diagnosis - Other cholelithiasis without obstruction kb Followup: kb - With: Emergency Department - When: As needed - Reason: Worsening of condition Followup: kb - With: Private Physician - When: 2 - 3 days - Reason: Recheck today's complaints, Continuance of care, Re-evaluation by your physician Discharge Instructions: - Discharge Summary Sheet kb - Cholelithiasis, [id number] kb Forms: - Medication Reconciliation Form kb - Thank You Letter kb - Antibiotic Education kb - Prescription Opioid Use kb - Patient Portal Instructions kb - Leadership Thank You Letter kb - Family Work Release jw7 Signatures: Dispatcher [employer] Livia Pete, DELORES PEDERSON-Lyndsey Houston RN RN jw7 Beba Mendez RN RN cm10
[2023-12-22 23:38] VITALS: BP 106/82; TEMP 97.3; O2SAT 100
== END ==
LOC: ER 20:01
DX: K80.80 Other cholelithiasis without obstruction (principal); Z88.0 Allergy status to penicillin
CPT/HCPCS: 36415; 76705; 80053; 81001; 81025; 83690; 85025; 99284